=== PATIENT | female | born 1960 | race Caucasian/White ===

== ENCOUNTER 2019-08-30 19:23 | Emergency (ER) | payer OTHER ==
[~2019-08-30] VITALS: Ht 170.2 cm; Wt 79.4 kg
[~2019-08-30 19:23] MED LIST: ACET-8386 PO; CLON1TAB PO; CLON2TAB; CYCL-405 PO; OMEP40EC24 PO; ONDA-24 PO; SUCR1TAB35 PO; TOP25
--- NOTE | 2019-08-30 19:28 | NUR ---
PT PAVEL ON GURNEY TO BED #12
[2019-08-30 19:30] VITALS: BP 123/70
[2019-08-30] MEDS ORDERED: NACL 0.9% 1,000 ML IV ONE ×2 (20:33→23:00)
[2019-08-30] MEDS ORDERED: ONDANSETRON 4 MG/2 ML VIAL IVP ONE (20:35)
--- NOTE | 2019-08-30 20:35 | NUR ---
59 YO FEMALE BIBA FOR C/O N/V X2 DAYS. PT STATES, " I FEEL DEHYDRATED." PT AAOX4, SEIZURE PRECAUTIONS. PT HAS HX OF PARALYSIS TO BUE. PALPABLE PULSES, SR 70S. LUNGS CLEAR EVEN UNLABORED. ABD SOFT NON DISTENDED. ACTIVE BOWEL SOUNDS. GURNEY LOCKED IN LOWEST POSITION. WILL UPDATE ERMD. HX: EPILEPSY, PARALYSIS, GERD, CONSTIPATION AX: SULFA
[2019-08-30 21:20] LABS: BASOPHILS % (AUTO) 0.3 % (0.0-2.0); EOSINOPHILS # (AUTO) 0.1 K/uL (0-0.4); EOSINOPHILS % (AUTO) 1.5 % (0.0-4.0); HEMOGLOBIN 13.7 g/dL (12.0-16.0); LYMPHOCYTES # (AUTO) 1.6 K/uL (2.5-16.5); LYMPHOCYTES % (AUTO) 17.5 % (20.5-51.1); MEAN CORPUSCULAR HEMOGLOBIN 32 pg (27-31); MEAN CORPUSCULAR HGB CONC 33 g/dL (33-37); MEAN CORPUSCULAR VOLUME 96.4 fL (80-94); MONOCYTES # (AUTO) 0.6 K/uL (0.8-1.0); MONOCYTES % (AUTO) 6.2 % (1.7-9.3); NEUTROPHILS # (AUTO) 6.8 K/uL (1.8-7.7); NEUTROPHILS % (AUTO) 74.5 % (42.2-75.2); PLATELET COUNT (AUTO) 258 K/uL (140-450); RED BLOOD CELL COUNT(AUTO) 4.36 MIL/uL (4.20-5.40); RED CELL DISTRIBUTION WIDTH 14.4 % (11.6-13.7); WHITE BLOOD COUNT (AUTO) 9.1 K/uL (4.8-10.8)
[2019-08-30 21:38] LABS: ANION GAP 12.4 (8-16); CARBON DIOXIDE 30.9 mmol/L (21-32); CREATININE 0.7 mg/dL (0.6-1.3); POTASSIUM 3.3 mmol/L (3.5-5.1); TOTAL BILIRUBIN 0.8 mg/dL (0.0-1.0)
--- NOTE | 2019-08-30 22:25 | NUR ---
# 14 FR STRAIGHT catheter utilizing sterile technique unsuccessful.pt refusing bedpan @ this time. urine collection bag in place
[2019-08-30 23:02] LABS: APPEARANCE,URINE SL CLOUDY (CLEAR); BILIRUBIN,URINE 1+ (NEGATIVE); BLOOD, URINE TRACE-I (NEGATIVE); COLOR,URINE YELLOW (YELLOW); LEUKOCYTE ESTERASE ,URINE TRACE (NEGATIVE); NITRITE, URINE NEGATIVE (NEGATIVE); UGLUCOSE NEGATIVE (NEGATIVE)
--- NOTE | 2019-08-30 23:35 | NUR ---
PT TAKEN TO CT
--- NOTE | 2019-08-30 23:54 | NUR ---
PT RETURN FROM CT
[2019-08-31] MEDS ORDERED: POTASSIUM CHLORIDE 10 MEQ TABER PO ONE (01:20)
--- NOTE | 2019-08-31 01:58 | NUR ---
DEMI SOFTBALL WINDER MADE AWARE, PT TO BE TRANSFERRED BACK TO [facility]
[2019-08-31 02:50] VITALS: BP 108/68
--- NOTE | 2019-08-31 02:50 | NUR ---
Patient discharged with v/s stable. Written and verbal after care instructions given and explained. Patient verbalized understanding. Ambulance Transport [facility]. All questions addressed prior to discharge. Advised to follow up with PMD.
== END 2019-08-31 02:50 | disposition home or self-care (01) ==
LOC: MED 19:23
DX: R11.2 Nausea with vomiting, unspecified (principal); E87.6 Hypokalemia; E86.0 Dehydration; Z91.012 Allergy to eggs; Z79.891 Long term (current) use of opiate analgesic; Z79.899 Other long term (current) drug therapy
CPT/HCPCS: 36415; 74176; 80053; 81001; 83605; 83690; 85025; 87040; 87086; 96361; 96374; 99284; J2405; J7030

== ENCOUNTER 2019-10-03 06:50 | Inpatient (IN) | payer OTHER ==
[~2019-10-03] VITALS: Ht 170.2 cm; Wt 94.5 kg
[2019-10-03] VITALS (62 sets, daily range): BP systolic 87–158; BP diastolic 49–89
--- NOTE | 2019-10-03 06:53 | NUR ---
PT PAVEL DESHPANDES. TAKEN TO BED 4
--- NOTE | 2019-10-03 07:02 | NUR ---
Dr. Kellogg examining patient.
--- NOTE | 2019-10-03 07:02 | NUR ---
59 Y/O FEMALE BIBA FROM PSYCHIATRIC FOR POSSIBLE OVERDOSE. PT WAS SEEN AT [facility] LAST NIGHT PER EMS. PSYCHIATRIC STATED TO EMS THAT [facility] OVER MEDICATED PT AND WAS SENT HOME AT 2200. PER EMS PT RECEIVES TEMAZEPAM, MORPHINE, AND PERCOCET. PT HAS NON RESPONSIVE PINPOINT PUPILS. APPEARS WITH [facility] OF 8. PT RESPONSIVE TO PAINFUL STIMULI. PT DOES NOT RESPOND TO NAME. PT APPEARS PALE, AND COOL TO THE TOUCH. RR DEEP AND LABORED, WITH INTERMITTENT SNORING. PT PLACED ON THE MONITOR. PT SITTING UPRIGHT, X2 SIDERAILS, BED LOCKED AND IN LOW POSITION.
--- NOTE | 2019-10-03 07:10 | NUR ---
RECEIVED REPORT FROM ALMITA DAMIAN.
--- NOTE | 2019-10-03 07:28 | NUR ---
PT TAKEN TO CT
--- NOTE | 2019-10-03 07:47 | NUR ---
Patient returned from CT scan. RN re-evaluating patient at bedside.
[2019-10-03 07:52] LABS: HEMATOCRIT 41.4 % (36-48); HEMOGLOBIN 13.3 g/dL (12.0-16.0); MEAN CORPUSCULAR HEMOGLOBIN 31 pg (27-31); MEAN CORPUSCULAR HGB CONC 32 g/dL (33-37); MEAN CORPUSCULAR VOLUME 96.3 fL (80-94); PLATELET COUNT (AUTO) 457 K/uL (140-450); RED CELL DISTRIBUTION WIDTH 15.2 % (11.6-13.7); WHITE BLOOD COUNT (AUTO) 21.9 K/uL (4.8-10.8)
[2019-10-03 08:05] LABS: ALBUMIN 3.4 g/dL (3.4-5.0); ANION GAP 22.7 (8-16); ASPARTATE AMINOTRANSFERASE 44 U/L (15-37); CARBON DIOXIDE 19.1 mmol/L (21-32); CHLORIDE 102 mmol/L (98-107); CREATININE 0.9 mg/dL (0.6-1.3); GFR ARICAN-AMERICAN 82 mL/min (>90); GLUCOSE 374 mg/dL (74-106); POTASSIUM 3.8 mmol/L (3.5-5.1); SALICYLATE 2.9 mg/dL (2.8-20.0); SODIUM SERUM 140 mmol/L (136-145); TOTAL BILIRUBIN 0.9 mg/dL (0.0-1.0); UREA NITROGEN, BLOOD 9 mg/dL (7-18)
[2019-10-03 08:06] LABS: ACETAMINOPHEN < 0.5 ug/ml (10-30)
[2019-10-03] MEDS ORDERED: cefTRIAXone 2,000 MG in DEXTROSE 5% 100 ML IV ONE (08:10)
[2019-10-03] MEDS ORDERED: ACETAMINOPHEN 650 MG SUPP RC ONE (08:10)
[2019-10-03] MEDS ORDERED: VANCOMYCIN 1,000 MG in DEXTROSE 5% 250 ML IV ONE (08:10)
[2019-10-03 08:11] LABS: APPEARANCE,URINE CLOUDY (CLEAR); BILIRUBIN,URINE 2+ (NEGATIVE); BLOOD, URINE 3+ (NEGATIVE); COLOR,URINE YELLOW (YELLOW); LEUKOCYTE ESTERASE ,URINE TRACE (NEGATIVE); NITRITE, URINE NEGATIVE (NEGATIVE); UGLUCOSE 2+ (NEGATIVE)
[2019-10-03 08:12] LABS: LYMPHOCYTES % (MANUAL) 12 % (20-46); MONOCYTES % (MANUAL) 8 % (5-12)
[2019-10-03] MEDS ORDERED: levETIRAcetam 1,000 MG in NACL 0.9% 100 ML IV ONE ×2 (08:15→08:20)
[2019-10-03] MEDS ORDERED: VANCOMYCIN 1,000 MG VIAL ONE (08:15)
[2019-10-03] MEDS ORDERED: cefTRIAXone 2,000 MG VIAL ONE (08:15)
[2019-10-03 08:17] LABS: BARBITURATE, URINE NEG. ng/ml (NEG <=200); BENZODIAZEPINE, URINE POS. ng/mL (NEG <=200); CANNABINOID, URINE NEG. ng/mL (NEG <=50); COCAINE, URINE NEG. ng/mL (NEG <=300); OPIATE, URINE POS. ng/mL (NEG <=2000); PHENCYCLIDINE SCREEN,URINE NEG. ng/mL (NEG <=25)
[2019-10-03] MEDS ORDERED: levETIRAcetam 100 MG/ML VIAL IV ONE (08:17)
--- NOTE | 2019-10-03 08:18 | NUR ---
PATIENT HAS SEIZURE, DR. CRESPO ORDERED KEPRA
--- NOTE | 2019-10-03 08:24 | NUR ---
X RAY AT BEDSIDE.
[2019-10-03 08:30] LABS: WBC,URINE 60-80 /HPF (0-5)
--- NOTE | 2019-10-03 08:31 | NUR ---
Dr. Leslie at bedside following secondary seizure for endotracheal intubation.
[2019-10-03] MEDS ORDERED: fentaNYL 0.05 MG/ML VIAL ONE (08:47)
[2019-10-03] MEDS ORDERED: PROPOFOL 1000 MG/100 ML PREMIX 100 ML IV ONE (08:48)
--- NOTE | 2019-10-03 08:50 | NUR ---
CALLED TO ER FOR PT'S INTUBATION. PT WAS ON NASAL CANNULA SPO2 97-99% BUT AGONAL BREATHING AND UNRESPONSIVE. PT INTUBATED BY ER MD CRESPO WITH 7.5 ETT AT 23 CM AT LIP. TUBE PLACEMENT CONFIRMED BY CO2 COLOR CHANGE, BREATH SOUNDS, AND CXR. VENT SETTINGS CHARTED. MD AGREES WITH SETTINGS. VENT CONNECTED TO RED OUTLET. ALARMS AUDIBLE. AMBU BAG AT BEDSIDE. NO SOB OR DISTRESS NOTED. WILL CONTINUE TO MONITOR.
[2019-10-03 08:54] LABS: PROTHROMBIN TIME 10.7 secs (10.8-13.4)
--- NOTE | 2019-10-03 08:54 | NUR ---
59 Y/0 F INTUBATED AT BEDSIDE BY DR. CRESPO
[2019-10-03] MEDS: PROPOFOL 1000 MG/100 ML PREMIX 100 ML IV ONE ×2 (08:55→09:11)
--- NOTE | 2019-10-03 09:00 | NUR ---
NG TUBE #16 PLACED RIGHT NOSTRIL AT [facility].
[2019-10-03] MEDS ORDERED: NACL 0.9% 1,000 ML IV ONE ×3 (09:15→15:05)
--- NOTE | 2019-10-03 09:25 | NUR ---
RETAINED CATH NO 16, URINE 10 ML.
[2019-10-03] MEDS: fentaNYL 1 MG in NACL 0.9% 80 ML IV PRN ×2 (09:38→21:01)
[2019-10-03] MEDS ORDERED: NACL 0.9% IV ONE (09:40)
[2019-10-03] MEDS ORDERED: ETOMIDATE 20 MG/10 ML VIAL IVP SCH (09:47)
[2019-10-03] MEDS ORDERED: SUCCINYLCHOLINE CHLORIDE 200 MG/10 ML VIAL IVP SCH (09:48)
--- NOTE | 2019-10-03 10:05 | NUR ---
TRANSFERRED TO ICU-8 REMOVED FROM VENTILATOR AND PLACED ON SUPPLEMENTAL OXYGEN VIA E-TANK AT 15 LPM TO INLINE SUCTION CATHETER/TRACHEOSTOMY TUBE BAG DEPRESSED EVERY 6-8 SECONDS TOLERATED TRANSFER WELL WITHOUT INCIDENT SATURATION 98% HR 108
--- NOTE | 2019-10-03 10:15 | NUR ---
PT ARRIVED FROM ER, BEDSIDE REPORT RECEIVED FROM [employer] SAFETY INSPECTOR KAVON, PT INTUBATED ON VENTILATOR, 7.5 ETT 24CM AT LIP, FIO2 30%, RR 16, VT 500, PEEP 5, LUNG SOUNDS EQUAL CLEAR BILAT, PT OPENS EYES TO TOUCH, RASS -4 ON FENTANYL, PUPILS SMALL AND SLUGGISH, PIV X2 18G LAC, 20G RAC, NS BOLUS, FENT DRIP INFUSING WELL, SITE WNL FOR BOTH, NGT TO R NARE, PLACEMENT CONFIRMED WITH AUSC BY 2RN, AB SOFT, NON DISTENDED, DAI IN PLACE, DRAINING TO GRAVITY, SKIN COOL DRY COLOR WNL, COVERED WITH BLANKETS, DERMATITIS NOTED IN BILAT INNER THIGHS, SCABS ON LEFT TOES, PHOTO TAKEN, SEE WOUND DOC, FLACC 0, ALL SAFETY MEASURES IN PLACE, SZ PREC, FALL PREC INITIATED, POC REVIEWED, WILL CONTINUE TO MONTOR.
--- NOTE | 2019-10-03 10:18 | NUR ---
PLACED BACK ON A WeddingfulSCAPE VENTILATOR PLUGGED INT RED OUTLET WITH SAME SETTINGS NOTED AMBU BAG NOTED AT HOB
--- NOTE | 2019-10-03 10:22 | NUR ---
Patient will be admitted to care of DR HAYWOOD. Admited to ICU. Will go to room BED 8. Belongings list completed. Report to NATI HEALY.
--- NOTE | 2019-10-03 10:55 | NUR ---
DR HAYWOOD AT BEDSIDE.
[2019-10-03] MEDS ORDERED: LORazepam 2 MG/ML VIAL IVP PRN (11:00)
[2019-10-03] MEDS ORDERED: ONDANSETRON 4 MG/2 ML VIAL IVP PRN (11:00)
[2019-10-03] MEDS ORDERED: MAGNESIUM OXIDE 400 MG TAB PO PRN (11:00)
[2019-10-03] MEDS ORDERED: ACETAMINOPHEN 325 MG TAB PO PRN (11:00)
[2019-10-03] MEDS ORDERED: POTASSIUM CHLORIDE 10 MEQ TABER PO PRN (11:00)
[2019-10-03] MEDS ORDERED: NACL 0.9% 1,000 ML IV SCH (11:15)
--- NOTE | 2019-10-03 11:24 | NUR ---
ABG DRAWN WITH NO INCIDENT. PAGED MD CHANGE FOR RESULTS AND WAITING FOR CALL BACK.
--- NOTE | 2019-10-03 12:01 | NUR ---
CALLED ANNA FREDERICK ([phone]), SPOKE WITH LUCIA TODD). PER LUCIA, PT WAS ABLE TO MAKE OWN DECISIONS AND REFUSED BOTH FLU AND PNA VACCINES.
--- NOTE | 2019-10-03 12:05 | NUR ---
AXILLARY TEMP 95.6, TEMPORAL 95.8, ROOM TEMP SET AT 68, FAN BLOWING HARD COLD AIR TO PATIENT, PT COVERED WITH MULTIPLE BLANKETS, ROOM TEMP RAISED, FAN TURNED DOWN, WILL RECHECK TEMP.
--- NOTE | 2019-10-03 12:19 | NUR ---
WOUND CARE EVALUATION NOTE: REASON FOR EVALUATION: LOW RYAN SCALE AND PERINEUM WOUND SKIN ASSESSMENT DONE WITH THIS 59 Y/O FEMALE PT ADMITTED FROM [facility] TO [facility] WITH INITIAL DX OF AMS. PT. VISITED [facility] AND DISCHARGED BACK TO FACILITY YESTERDAY WITH AMS. ALL ABOVE INFORMATION OBTAINED FROM ADMISSION H&P. PT IS ASLEEP. NOT RESPONSIVE TO VERBAL AND PHYSICAL STIMULI. SKIN IS WARM AND DRY, NO EDEMA TO BILATERAL LOWER LEGS. PLAN OF CARE DISCUSSED WITH PRIMARY RN INTEGUMENTARY: -INCONTINENT ASSOCIATE DERMATITIS TO PERINEUM EXTENTED TO RIGHT AND LEFT MEDIAL THIGHS WITH MULTIPLE SKIN EROSIONS WOUND BED IS RED AND MOIST, OLI -WOUND SKIN REDNESS -MULTIPLE DRY SCABS TO TOP OF TOES, RIGHT 2ND, 3RD AND 4TH DIGIT, OLI WOUND SKIN INTACT -BILATERAL HEELS BLANCHABLE REDNESS RECOMMENDATIONS: -CLEANSE PERINEUM, RIGHT AND LEFT MEDIAL THIGHS WITH SOAP AND WATER, PAT DRY, APPLY Z GUARD BID AND PRN WITH SOILING. -APPLY OPTIFOAM TO SACRALCOCCYX QD AND PRN SOILING PREVENTION -OFFLOAD BILATERAL HEELS BY PLACING PILLOWS UNDER CALVES UNLESS OTHERWISE CONTRAINDICATED -PRESSURE REDISTRIBUTIONS BY USING PILLOWS FOR POSITIONING -TURN AND REPOSITION Q2H, OFFLOAD SACRALCOCCYX BY TURNING RIGHT AND LEFT -CONTINUE TO FOLLOW RD RECOMMENDATIONS ALL ABOVE RECOMMENDATIONS DISCUSSED WITH PRIMARY RN PLEASE CONTACT WOUND CARE NURSE FOR ANY QUESTION AND CHANGE OF WOUND CONDITION.
--- NOTE | 2019-10-03 12:20 | NUR ---
CALLED DR. ASHLEE COOK'S OFFICE. SPOKE WITH JOY REGARDING NEURO CONSULT WITH DR. FREDERICK. DR. COOK WILL BE COVERING DR. FREDERICK FROM 10/03 TO 10/07. JOY WILL LET DR. COOK KNOW OF THE CONSULTATION. WILL FOLLOW UP.
[2019-10-03] MEDS: LACTULOSE 20 GM/30 ML UDC PO SCH ×2 (12:29→17:22)
--- NOTE | 2019-10-03 12:38 | NUR ---
DR COOK AT BEDSIDE
[2019-10-03] MEDS: Z-GUARD PASTE TP SCH (13:00)
[2019-10-03] MEDS ORDERED: Z-GUARD PASTE TP SCH (13:00)
[2019-10-03] MEDS: GAUZE TP SCH (13:07)
[2019-10-03] MEDS: PIPERACILLIN/TAZOBACTAM 3.375 GM in DEXTROSE 5% 50 ML IV SCH ×2 (13:07→20:50)
--- NOTE | 2019-10-03 13:30 | NUR ---
INSOLE PRESSER AT BEDSIDE.
--- NOTE | 2019-10-03 13:50 | NUR ---
NO PULMONARY DISTRESS NOTED EQUAL CHEST RISE AIRWAY PATENT
--- NOTE | 2019-10-03 14:15 | NUR ---
TEMPORAL 95.0, AXILA 95.5, RECTAL TEMP 94.4, DR CHASTITY MCKEON.
--- NOTE | 2019-10-03 14:50 | NUR ---
NO CALL BACK YET FROM DR. HAYWOOD. PAGED SECOND TIME.
--- NOTE | 2019-10-03 15:00 | NUR ---
DR. HAYWOOD CALLED BACK, MADE AWARE OF PT'S DECREASING TEMP 95.0 VIA TEMPORAL ARTERY SCAN AND DECREASING BLOOD PRESSURE 92/64. ORDERS RECEIVED.
[2019-10-03] MEDS ORDERED: VANCOMYCIN PER PHARMACY MC PRN (15:05)
--- NOTE | 2019-10-03 15:20 | NUR ---
CARA MERINO APPLIED, NS BOLUS STARTED, IV SITES WNL, PT RESTING WITH EYES CLOSED, OPENS EYES TO VOICE, VS STABLE, WILL CONTINUE TOMONITR
--- NOTE | 2019-10-03 15:32 | NUR ---
10/03/19 RD INITIAL ASSESSMENT COMPLETED PLEASE REFER TO NUTRITION ASSESSMENT UNDER CARE ACTIVITY FOR ESTIMATED NUTRITIONAL NEEDS. 1. RECOMMEND VITAL AF 1.2 @ 55 ML/HR X 24 HOURS -THIS WILL PROVIDE 1320 ML OF VOLUME, 1584 KCAL, AND 99 GM OF PROTEIN WHICH MEETS 100% OF ESTIMATED KCAL AND PROTEIN NEEDS. 2. RECOMMEND FREE WATER FLUSH OF [address] TO FOLLOW-UP 2-3 DAYS, HIGH RISK EMERSON PAYAN RD
--- NOTE | 2019-10-03 15:58 | NUR ---
NO EVIDENCE OF RESPIRATORY DISTRESS NOTED GOOD CHEST RISE DEEP TRACHEAL SUCTION FOR MODERATE THIN YELLOW SECRETIONS AIRWAY PATENT
--- NOTE | 2019-10-03 16:15 | NUR ---
BROTHGREG NUNEZ AT BEDSIDE
--- NOTE | 2019-10-03 16:40 | NUR ---
PAGED DR. HAYWOOD FOR ABNORMAL ABG RESULTS. AWAITING CALL BACK.
--- NOTE | 2019-10-03 17:05 | NUR ---
DR. HAYWOOD PAGED SECOND TIME FOR ABG RESULTS.
--- NOTE | 2019-10-03 17:08 | NUR ---
NO SOB NOTED EQUAL CHEST RISE GOOD AERATION THROUGHOUT BILATERAL LUNG GOLDSTEIN AIRWAY PATENT
[2019-10-03] MEDS: VANCOMYCIN 1,000 MG in DEXTROSE 5% 250 ML IV SCH (17:22)
--- NOTE | 2019-10-03 17:40 | NUR ---
DR. HAYWOOD CALLED BACK. REPORTED ABNORMAL ABG RESULTS. ORDERS RECEIVED.
--- NOTE | 2019-10-03 17:50 | NUR ---
LARGE BM, PERICARE DONE, Z GUARD APPLIED TO INNER THIGH AND OLI AREA, POSITION CHANGED, PT SEDATED ON FENTANYL AT 44MCG/HR, RASS -4, OPENS EYES TO VOICE, DOES NOT FOLLOW COMMANDS. GT FEEDING STARTED AT 10ML/HR PER ORDER,
[2019-10-03] MEDS ORDERED: SODIUM BICARBONATE 8.4% PFS 50 MEQ/50 ML SYR IVP SCH (18:00)
[2019-10-03] MEDS: SODIUM BICARBONATE 8.4% 100 MEQ in DEXTROSE 5% 1,000 ML IV SCH (18:41)
--- NOTE | 2019-10-03 19:15 | NUR ---
BEDSIDE REPORT GIVEN TO BRAZER ASSEMBLER NURSE JEFF FLORES IN STABLE CONDITION.
--- NOTE | 2019-10-03 20:00 | NUR ---
RECEIVED REPORT FROM DAY NURSE. PT SEDATED, RASS-4 PT AFEBRILE @ THIS TIME, UNABLE TO FOLLOW COMMANDS. S1 S2, NSR 90S, SBP 90-100S MAP<65. ETT TO VENT @ 30% FIO2 TV 500 PEEP 5 R 16. MINIMAL SECRETIONS VIA INLINE SUCTION; RHONCHI AUSCULTATED THROUHGHOUT ANTERIOR LUNGS. NGT TO R NARES VITAL AF RUNNING NO RESIDUALS NOTED. AUSCULTATED FOR +PLACEMENT. DAI CATH IN PLACE JEWELL WITH SEDIMENTS NOTED. SKIN NON INTACT; INCONTINENT ASSOCIATED DERMATITIS TO OLI AREA. OLD HEALING SCABS TO L TOES NOTED. X2 PERIPHERAL IV WITH FENTANYL DRIP RUNNING ON R AC, BICARB DRIP ON L AC. BED LOCKED IN LOWEST POSITION. HOB>30 DEGREES. SEIZURE PRECAUTIONS IN PLACE.
[2019-10-03] MEDS: levETIRAcetam 500 MG in NACL 0.9% 100 ML IV SCH (20:49)
[2019-10-03] MEDS: PANTOPRAZOLE 40 MG INJ VIAL IVP SCH (20:50)
[2019-10-03] MEDS: TOPIRAMATE 25 MG TAB NG SCH (20:50)
--- NOTE | 2019-10-03 23:33 | NUR ---
RECEIVED INTUBATED PT WITH ETT SIZE 7.5 AT 23 CM @ LIP AND SECURED WITH ANCHOR-FAST. COARSE BREATH SOUNDS; SP02 97%; SUCTIONED MODERATE YELLOW THICK SECRETIONS FROM ETT. NO RESPIRATORY DISTRESS. PT ON VENT SETTINGS ORDERED; VENT PLUGGED IN RED OUTLET; BVM AT BEDSIDE; HOB>30; ALARMS FUNCTIONING AND AUDIBLE. WILL CONTINUE TO MONITOR PT.
[2019-10-04] VITALS (79 sets, daily range): BP systolic 83–140; BP diastolic 48–89
--- NOTE | 2019-10-04 | NUR ---
VAP ORAL CARE DONE. PT TURNED AND REPOSITIONED. FLACC 0. WILL CONTINUE TO OBSERVE
[2019-10-04] MEDS: LACTULOSE 20 GM/30 ML UDC PO SCH ×4 (00:40→18:13)
[2019-10-04] MEDS: GAUZE TP SCH ×2 (01:00→12:55)
[2019-10-04] MEDS: Z-GUARD PASTE TP SCH ×2 (01:00→12:55)
--- NOTE | 2019-10-04 03:20 | NUR ---
PT WARM TO TOUCH; ORAL TEMP CHECKED 100.9. COOLING MEASURES APPLIED. TYLENOL PRN GIVEN. WILL UPDATE MD.
--- NOTE | 2019-10-04 04:00 | NUR ---
TEMP RECHECKED 98.8 TEMPORAL; FLACC 0.
[2019-10-04] MEDS: SODIUM BICARBONATE 8.4% 100 MEQ in DEXTROSE 5% 1,000 ML IV SCH ×2 (04:40→16:40)
[2019-10-04] MEDS: PIPERACILLIN/TAZOBACTAM 3.375 GM in DEXTROSE 5% 50 ML IV SCH ×3 (05:00→21:03)
--- NOTE | 2019-10-04 05:00 | NUR ---
AM CARE PROVIDED, LINEN CHANGED. VAP ORAL CARE DONE. PT TURNED AND REPOSITIONED
--- NOTE | 2019-10-04 05:24 | NUR ---
SUCTIONED SMALL YELLOW THICK SECRETIONS FROM ETT. AIRWAY PATENT. ETT SIZE 7.5 SECURED AT 23 CM @ LIP. NO RESPIRATORY DISTRESS NOTED. WILL CONTINUE TO MONITOR.
[2019-10-04] MEDS: VANCOMYCIN 1,000 MG in DEXTROSE 5% 250 ML IV SCH ×2 (05:30→18:11)
[2019-10-04 06:02] LABS: ANION GAP 21.5 (8-16); CARBON DIOXIDE 19.9 mmol/L (21-32)
[2019-10-04 06:10] LABS: BASOPHILS % (AUTO) 0.3 % (0.0-2.0); EOSINOPHILS # (AUTO) 0.1 K/uL (0-0.4); EOSINOPHILS % (AUTO) 0.5 % (0.0-4.0); HEMATOCRIT 33.3 % (36-48); HEMOGLOBIN 11.2 g/dL (12.0-16.0); LYMPHOCYTES # (AUTO) 0.9 K/uL (2.5-16.5); LYMPHOCYTES % (AUTO) 7.8 % (20.5-51.1); MEAN CORPUSCULAR HEMOGLOBIN 31 pg (27-31); MEAN CORPUSCULAR HGB CONC 34 g/dL (33-37); MEAN CORPUSCULAR VOLUME 93.5 fL (80-94); MONOCYTES # (AUTO) 0.7 K/uL (0.8-1.0); MONOCYTES % (AUTO) 6.3 % (1.7-9.3); NEUTROPHILS # (AUTO) 9.3 K/uL (1.8-7.7); NEUTROPHILS % (AUTO) 85.1 % (42.2-75.2); PLATELET COUNT (AUTO) 179 K/uL (140-450); RED BLOOD CELL COUNT(AUTO) 3.56 MIL/uL (4.20-5.40); RED CELL DISTRIBUTION WIDTH 14.5 % (11.6-13.7)
[2019-10-04 06:25] LABS: POTASSIUM 2.4 mmol/L (3.5-5.1)
--- NOTE | 2019-10-04 07:30 | NUR ---
RECEIVED PATIENT ON BED.RASS-4 WITH FENTANYL DRIP.DAI TO GRAVITY.NGT WITH VITAL AT 40 ML/H .ETT TO VENT SIZE 7.5 WITH VENT SETTING FOLLOWS fIO2=30 PERCENT,XD=256,ac=16,peep=5 .NSR on the monitor.Seizure precaution maintained. Addendum: 10/04/19 at 1151 by Melva Singer RN RN ett level 23 cm at lip
--- NOTE | 2019-10-04 07:30 | NUR ---
REPORT GIVEN TO DAY SHIFT FOR CONTINUITY OF CARE
--- NOTE | 2019-10-04 08:00 | NUR ---
RECEIVED PT FROM [facility] ON 500,16,+5,30%. VENT PLUGGED INTO RED OUTLET. BMV AT BEDSIDE. PT SOUNDED CLEAR. SAT 96-97%. ATTEMPTED ABG TWICE BUT WAS UNSUCCESSFUL. WILL TRY AGAIN IN ABOUT AN HOUR. RN GORDO NOTIFIED.
[2019-10-04] MEDS: ENOXAPARIN 40 MG/0.4 ML SYR SUBQ SCH (08:26)
[2019-10-04] MEDS ORDERED: MAG SULF 2000 MG/WATER PREMIX 50 ML IV SCH (08:30)
[2019-10-04] MEDS: levETIRAcetam 500 MG in NACL 0.9% 100 ML IV SCH ×2 (08:32→21:03)
[2019-10-04] MEDS: TOPIRAMATE 25 MG TAB NG SCH ×2 (08:32→21:04)
[2019-10-04] MEDS: PANTOPRAZOLE 40 MG INJ VIAL IVP SCH ×2 (08:32→21:04)
[2019-10-04] MEDS: POTASSIUM CHLORIDE 10 MEQ TABER PO SCH ×2 (08:33→12:54)
--- NOTE | 2019-10-04 09:35 | NUR ---
ASKED ELVIS NELSON TO HELP WITH ABG DUE TO TWO UNSUCESSFUL ATTEMPTS. ELVIS WAS UNABLE TO GET IT. PATIENT BP IS LOW. AND PT HAS A FAINT PULSE.
[2019-10-04] MEDS ORDERED: POTASSIUM CHLORIDE 20% 40 MEQ/15 ML UDC PO PRN (13:03)
[2019-10-04] MEDS ORDERED: NOREPINEPHRINE 4 MG in DEXTROSE 5% 250 ML IV PRN (15:00)
--- NOTE | 2019-10-04 15:38 | NUR ---
SX SMALL AMOUNT OF THICK YELLOW SECRETION
--- NOTE | 2019-10-04 17:30 | NUR ---
PT NOTED WITH PVCS ON MONITOR. PAGED DR. HAYWOOD X2. WAITING FOR CALL BACK. NO DISTRESS NOTED ON PT AT THIS TIME.
[2019-10-04] MEDS: BLOOD GLUCOSE MONITORING 1 DEV DEV FS SCH (18:16)
[2019-10-04] MEDS: INSULIN LISPRO SLIDING SCALE 100 UNITS/ML VIAL SUBQ PRN (18:17)
[2019-10-04] MEDS ORDERED: MAG SULF 2000 MG/WATER PREMIX 100 ML IV ONE (18:45)
[2019-10-04] MEDS ORDERED: KCL 20 MEQ/WATER INJ PREMIX 200 ML IV ONE (18:45)
--- NOTE | 2019-10-04 19:30 | NUR ---
RECEIVED REPORT FROM MORNING RNARMANDO, FOR CONTINUITY OF CARE. VS STABLE AT THIS TIME. AFEBRILE. PERRL. FLACC 0. PT OPENS EYES TO PAIN. SEIZURE PRECAUTIONS IN PLACE. NO SEIZURE ACTIVITY PER REPORT. LUNG SOUNDS CLEAR. ETT TO VENT WITH SETTINGS: FIO2 30%, TV 500, R16, PEEP 5. RESPIRATIONS EVEN AND UNLABORED. CHEST RISE SYMMETRIC. ORAL CARE PROVIDED TO PT. S1+S2 HEARD. SR ON MONITOR. PULSES PALPABLE IN ALL EXTREMITIES. NGT THROUGH RIGHT NARES. AUSCULTATED AND FLUSHED. NO RESIDUAL NOTED. VITAL AF RUNNING AT 55ML/HR. DAI CATHETER IN PLACE. DRAINING CLEAR AND YELLOW URINE. DAI CATHETER SECURED IN PLACE. NO BM NOTED. PT HAS PERIPHERAL IV ON RIGHT AC 20G AND LEFT AC 18G. IV LINES ARE PATENT, INTACT AND ASYMPTOMATIC. SODIUM BICARBONATE RUNNING AT 100ML/HR. HOB AT 30 DEGREES. ALL SAFETY PRECAUTIONS ARE IN PLACE. WILL CONTINUE TO MONITOR PT.
--- NOTE | 2019-10-04 21:29 | NUR ---
RECEIVED INTUBATED PT WITH ETT SIZE 7.5 AT 23 CM @ LIP AND SECURED WITH ANCHOR-FAST. CLEAR BREATH SOUNDS; SP02 97%; SUCTIONED MODERATE YELLOW THICK SECRETIONS FROM ETT. NO RESPIRATORY DISTRESS. PT ON VENT SETTINGS ORDERED; VENT PLUGGED IN RED OUTLET; BVM AT BEDSIDE; HOB>30; ALARMS FUNCTIONING AND AUDIBLE. WILL CONTINUE TO MONITOR PT
--- NOTE | 2019-10-04 22:36 | NUR ---
NO CHANGE IN PT'S CONDITION. PT TURNED AND REPOSITIONED. TOLERATED FAIRLY. VS REMAINS STABLE. NO SOB NOTED.NO S/S RESPIRATORY DISTRESS. NO SEIZURE NOTED. WILL CONTINUE TO MONITOR PT.
[2019-10-05] VITALS (22 sets, daily range): BP systolic 88–154; BP diastolic 43–95
[2019-10-05] MEDS: LACTULOSE 20 GM/30 ML UDC PO SCH ×4 (00:15→18:04)
[2019-10-05] MEDS: BLOOD GLUCOSE MONITORING 1 DEV DEV FS SCH ×4 (00:16→18:04)
[2019-10-05] MEDS: INSULIN LISPRO SLIDING SCALE 100 UNITS/ML VIAL SUBQ PRN ×2 (00:17→06:26)
[2019-10-05] MEDS: GAUZE TP SCH ×2 (00:18→13:08)
[2019-10-05] MEDS: Z-GUARD PASTE TP SCH ×2 (00:18→13:08)
--- NOTE | 2019-10-05 00:20 | NUR ---
SR ON MONITOR. PT EYES ARE CLOSED. FLACC 0. NO SEIZURE ACTIVITY NOTED. VS STABLE. BP WNL. OXYGEN SATURATION WNL. RESPIRATIONS ARE EVEN AND UNLABORED. NO SIGNS OF RESPIRATORY DISTRESS OBSERVED.
--- NOTE | 2019-10-05 02:13 | NUR ---
PT TURNED AND REPOSITIONED. NO BM NOTED AT THIS TIME. VS STABLE. RESPIRATIONS EVEN AND UNLABORED. CHEST RISE SYMMETRIC. OXYGEN SATURATION WNL. WILL CONTINUE TO MONITOR PT.
[2019-10-05] MEDS: SODIUM BICARBONATE 8.4% 100 MEQ in DEXTROSE 5% 1,000 ML IV SCH ×2 (02:40→06:33)
--- NOTE | 2019-10-05 04:32 | NUR ---
AFEBRILE. SEIZURE PRECAUTIONS IN PLACE WITH NO SEIZURE ACTIVITY NOTED. VS REMAINS STABLE SR TO ST ON MONITOR. DAI CATHETER STILL IN PLACE WITH GOOD URINE OUTPUT. ALL SAFETY PRECAUTIONS REMAINS IN PLACE.
--- NOTE | 2019-10-05 05:20 | NUR ---
MORNING CARE PROVIDED TO PT. TOLERATED BEING TURNED FAIRLY. PT AWAKE AT THIS TIME. UNABLE TO ASSIST IN TURNING AND REPOSITIONING. PT HAD ONE BM THAT IS MEDIUM, AND BROWN IN COLOR. CONSISTENCY IS PASTE-LIKE. NO FOUL ODOR NOTED. ORAL CARE PROVIDED ALONG WITH DAI CATHETER CARE. ALL IV LINES ARE PATENT, INTACT AND ASYMPTOMATIC. VS REMAINS STABLE. SR TO ST ON MONITOR AFEBRILE. ALL SAFETY PRECAUTIONS ARE KEPT IN PLACE.
[2019-10-05] MEDS: PIPERACILLIN/TAZOBACTAM 3.375 GM in DEXTROSE 5% 50 ML IV SCH ×3 (05:36→20:25)
[2019-10-05] MEDS: VANCOMYCIN 1,000 MG in DEXTROSE 5% 250 ML IV SCH (06:00)
[2019-10-05 06:25] LABS: ALBUMIN 2.1 g/dL (3.4-5.0); ANION GAP 16.5 (8-16); CARBON DIOXIDE 24.5 mmol/L (21-32); CREATININE 0.7 mg/dL (0.6-1.3); TOTAL BILIRUBIN 1.1 mg/dL (0.0-1.0)
[2019-10-05 06:34] LABS: MEAN CORPUSCULAR HGB CONC 35 g/dL (33-37); RED CELL DISTRIBUTION WIDTH 14.9 % (11.6-13.7)
[2019-10-05 06:37] LABS: HEMATOCRIT 29.3 % (36-48); HEMOGLOBIN 10.2 g/dL (12.0-16.0); MEAN CORPUSCULAR HEMOGLOBIN 32 pg (27-31); MEAN CORPUSCULAR VOLUME 92.7 fL (80-94); PLATELET COUNT (AUTO) 237 K/uL (140-450); RED BLOOD CELL COUNT(AUTO) 3.17 MIL/uL (4.20-5.40); WHITE BLOOD COUNT (AUTO) 9.6 K/uL (4.8-10.8)
[2019-10-05 07:12] LABS: EOSINOPHILS % (MANUAL) 1 % (0-4); LYMPHOCYTES % (MANUAL) 10 % (20-46); MONOCYTES % (MANUAL) 3 % (5-12)
--- NOTE | 2019-10-05 07:12 | NUR ---
RECEIVED BEDSIDE REPORT FROM DEX OPERATIONS CHIEF RN, FOR CONTINUITY OF CARE. PATIENT IS LETHARGIC, OPENS EYES SPONTANEOUSLY, ABLE TO MAKE SOME NEEDS KNOWN. SHE IS AFEBRILE, WARM, DRY, INCONTINENT DERMATITIS TO PERINEAL AREA AND SCABS TO LEFT TOES. PATIENT HAS ETT TO VENT, BREATHING EVEN AND UNLABORED. ST ON MONITOR, FLACC 0. PATIENT HAS NGT IN PLACE TO R. NARES TO TUBE FEEDING. SHE HAS DAI CATHETER IN PLACE. HOB 30 DEGREES, SIDE RAILS UP 3X, SEIZURE PRECAUTIONS IN PLACE. NO SIGNS OF DISTRESS NOTED. WILL CONTINUE TO MONITOR
--- NOTE | 2019-10-05 07:30 | NUR ---
PT RECEIVED FROM [facility] ON AC 16,500,+5,30%. VENT PLUGGED INTO RED OUTLET. BMV AT BEDSIDE. PT IS IN NO DISTRESS
[2019-10-05] MEDS: PANTOPRAZOLE 40 MG INJ VIAL IVP SCH ×2 (08:33→20:25)
[2019-10-05] MEDS: levETIRAcetam 500 MG in NACL 0.9% 100 ML IV SCH ×2 (08:33→21:38)
[2019-10-05] MEDS: TOPIRAMATE 25 MG TAB NG SCH ×2 (08:33→20:25)
[2019-10-05] MEDS: ENOXAPARIN 40 MG/0.4 ML SYR SUBQ SCH (08:37)
--- NOTE | 2019-10-05 09:14 | NUR ---
CALLED DR. HAYWOOD, AWARE OF PATIENT'S POTASSIUM IS 3.0, RECEIVED ORDER FOR KCL IV 40MEQ AND KCL GT 40 MEQ, DR. HAYWOOD ALSO ORDERED FOR PICC LINE.
[2019-10-05] MEDS ORDERED: POTASSIUM CHLORIDE 20% 40 MEQ/15 ML UDC GT SCH (09:30)
[2019-10-05] MEDS ORDERED: KCL 20 MEQ/WATER INJ PREMIX 200 ML IV SCH (09:30)
--- NOTE | 2019-10-05 10:42 | NUR ---
DR. HAYWOOD IS HERE TO SEE AND EXAMINE PATIENT, AND SPEAK WITH PATIENT'S BROTHER.
--- NOTE | 2019-10-05 10:45 | NUR ---
DR. HAYWOOD ORDERED FOR PICC LINE, SPOKE WITH PATIENT'S FAMILY, RECEIVED CONSENT FOR PICC LINE FROM PATIENT'S SON.
[2019-10-05] MEDS ORDERED: NACL 0.9% 500 ML IV SCH (11:20)
--- NOTE | 2019-10-05 12:55 | NUR ---
PT HAS NO SPONTANEOUS EFFORT. PT IS CURRENTLY RIDING THE VENT.
[2019-10-05] MEDS: CHLORHEXADINE GLUC 2% CLOTH TP SCH (15:37)
--- NOTE | 2019-10-05 15:37 | NUR ---
CALLED REGARDING PATIENT'S INCONTINENT DERMATITIS AND FREQUENT LIQUID STOOLS, RECEIVED ORDER FOR RECTAL TUBE.
[2019-10-05] MEDS: MUPIROCIN CA NASAL 2% 1GM TUBE NS SCH (15:41)
[2019-10-05] MEDS: VANCOMYCIN 750 MG in DEXTROSE 5% 250 ML IV SCH (17:07)
--- NOTE | 2019-10-05 17:42 | NUR ---
CALLED DR. FIGUEROA, REGARDING PATIENT BEING MORE AWAKE AND RESTLESS ON THE VENT. RECEIVED ORDER FOR VERSED DRIP AND PRN FENTANYL IVP
[2019-10-05] MEDS ORDERED: fentaNYL 0.05 MG/ML VIAL IVP PRN (17:45)
[2019-10-05] MEDS ORDERED: MIDAZOLAM MDV 50 MG in NACL 0.9% 40 ML IV PRN (17:45)
--- NOTE | 2019-10-05 19:18 | NUR ---
ENDORSED CONTINUITY OF CARE TO DEX DIESEL MECHANIC FARM RN. NO SIGNS OF DISTRESS AT THIS TIME
--- NOTE | 2019-10-05 19:25 | NUR ---
RECEIVED REPORT FROM MORNING RN, LUDIVINA, FOR CONTINUITY OF CARE. VS STABLE AT THIS TIME. AFEBRILE. PERRL. FLACC 0. PT OPENS EYES TO PAIN. SEIZURE PRECAUTIONS IN PLACE. NO SEIZURE ACTIVITY PER REPORT. LUNG SOUNDS RHONCHI. ETT TO VENT WITH SETTINGS: FIO2 30%, TV 500, R16, PEEP 5. RESPIRATIONS EVEN AND UNLABORED. CHEST RISE SYMMETRIC. RESPIRATIONS EVEN AND UNLABORED. ORAL CARE PROVIDED. PULSES PALPABLE IN ALL EXTREMITIES. S1+S2 HEARD[address] ON MONITOR. NGT THROUGH RIGHT NARES. BS ACTIVE IN ALL QUADRANTS. AUSCULTATED AND FLUSHED. NO RESIDUAL NOTED. VITAL AF RUNNING AT 55ML/HR. RECTAL TUBE IN PLACE. NO LEAKAGE NOTED AT THIS TIME. DAI CATHETER IN PLACE. DRAINING SLIGHTLY CLOUDY AND YELLOW URINE. DAI CATHETER SECURED IN PLACE. PT HAS PERIPHERAL IV ON RIGHT AC 20G. IV LINE IS PATENT, INTACT AND ASYMPTOMATIC. NS RUNNING AT 85ML/HR. HOB AT 30 DEGREES. ALL SAFETY PRECAUTIONS ARE IN PLACE. WILL CONTINUE TO MONITOR PT.
--- NOTE | 2019-10-05 22:22 | NUR ---
NO CHANGE IN PT'S CONDITION AT THIS TIME. VS REMAINS STABLE. ST ON MONITOR. FLACC 0. PT DOES NOT APPEAR TO BE EXPERIENCING ANY DISCOMFORT AT THIS TIME. RESPIRATIONS EVEN AND UNLABORED. CHEST RISE SYMMETRIC. OXYGEN SATURATION WNL.
--- NOTE | 2019-10-05 23:08 | NUR ---
TIME OUT DONE AT BEDSIDE FOR PICC LINE INSERTION.
--- NOTE | 2019-10-05 23:35 | NUR ---
PICC LINE SUCCESSFULLY INSERTED BY PICC LINE RN, HUONG REILLY. CXR TAKEN AT BEDSIDE. PER PICC LINE RN, LINE IS OKAY TO USE.
[2019-10-05] MEDS ORDERED: ALBUTEROL SULFATE/IPRATROPIU 3 ML SOL IH PRN (23:45)
[2019-10-06] VITALS (23 sets, daily range): BP systolic 92–136; BP diastolic 43–76
[2019-10-06] MEDS: LACTULOSE 20 GM/30 ML UDC PO SCH ×4 (00:29→18:27)
[2019-10-06] MEDS: BLOOD GLUCOSE MONITORING 1 DEV DEV FS SCH ×4 (00:29→18:36)
[2019-10-06] MEDS: INSULIN LISPRO SLIDING SCALE 100 UNITS/ML VIAL SUBQ PRN ×3 (00:30→18:28)
--- NOTE | 2019-10-06 00:49 | NUR ---
PT TURNED AND REPOSITIONED. VS REMAINS STABLE. SLIGHT LEAKAGE NOTED ON RECTAL TUBE. REINFORCED. AFEBRILE. UNABLE TO FOLLOW COMMANDS. PICC LINE DRESSING CLEAN, DRY AND INTACT. HOB [address]ES. NGT STILL IN PLACE AND NO RESIDUAL NOTED. ALL SAFETY PRECAUTIONS REMAINS IN PLACE.
[2019-10-06] MEDS: Z-GUARD PASTE TP SCH ×2 (01:00→13:20)
[2019-10-06] MEDS: GAUZE TP SCH ×2 (01:00→13:20)
--- NOTE | 2019-10-06 02:15 | NUR ---
VS STABLE. NO CHANGE IN PT'S CONDITION. VS REMAINS STABLE. RESPIRATIONS EVEN AND UNLABORED. OXYGEN SATURATION WNL. CHEST RISE SYMMETRIC. FIO2 STILL AT 30%. NO LEAK NOTED ON RECTAL TUBE AT THIS TIME. ALL SAFETY PRECAUTIONS REMAINS IN PLACE. WILL CONTINUE TO MONITOR PT.
[2019-10-06] MEDS: PIPERACILLIN/TAZOBACTAM 3.375 GM in DEXTROSE 5% 50 ML IV SCH ×3 (04:26→20:35)
--- NOTE | 2019-10-06 05:20 | NUR ---
MORNING CARE PROVIDED TO PT. ALL LINENS ARE CHANGED. TOLERATED BEING TURNED AND REPOSITIONED FAIRLY. RESPIRATIONS EVEN AND UNLABORED. DAI CATHETER AND ORAL CARE PROVIDED. ALL SAFETY PRECAUTIONS ARE IN PLACE. WILL CONTINUE TO MONITOR PT.
[2019-10-06] MEDS: VANCOMYCIN 750 MG in DEXTROSE 5% 250 ML IV SCH (05:24)
[2019-10-06] MEDS: NACL 0.9% 1,000 ML IV SCH ×2 (05:30→23:06)
[2019-10-06 06:59] LABS: BASOPHILS % (AUTO) 0.3 % (0.0-2.0); EOSINOPHILS # (AUTO) 0.2 K/uL (0-0.4); EOSINOPHILS % (AUTO) 4.2 % (0.0-4.0); HEMATOCRIT 26.3 % (36-48); HEMOGLOBIN 8.9 g/dL (12.0-16.0); LYMPHOCYTES # (AUTO) 1.1 K/uL (2.5-16.5); LYMPHOCYTES % (AUTO) 21.3 % (20.5-51.1); MEAN CORPUSCULAR HEMOGLOBIN 32 pg (27-31); MEAN CORPUSCULAR HGB CONC 34 g/dL (33-37); MEAN CORPUSCULAR VOLUME 93.2 fL (80-94); MONOCYTES # (AUTO) 0.3 K/uL (0.8-1.0); MONOCYTES % (AUTO) 5.8 % (1.7-9.3); NEUTROPHILS # (AUTO) 3.5 K/uL (1.8-7.7); NEUTROPHILS % (AUTO) 68.4 % (42.2-75.2); PLATELET COUNT (AUTO) 149 K/uL (140-450); RED BLOOD CELL COUNT(AUTO) 2.82 MIL/uL (4.20-5.40); RED CELL DISTRIBUTION WIDTH 15.1 % (11.6-13.7); WHITE BLOOD COUNT (AUTO) 5.1 K/uL (4.8-10.8)
--- NOTE | 2019-10-06 07:30 | NUR ---
PT ON CONTACT ISOLATION, RESTING WITH EYES CLOSED, FLACC 0, AROUSES TO PAINFUL STIMULI, NO SEDATION MEDICATIONS AT THIS TIME, RESP EVEN UNLABORED, ETT TO VENT, 30% FIO2, RR 16, TV 500, PEEP 5, BS CLEAR, DIMINISHED AT BASES, VS STABLE ON MONTOR, HR 88, RR 16, SAT 100, BP 117/74, NGT TO CONT FEED WITH VITAL AF, AT 55ML/HR, ABD SOFT NON TENDER, +BS IN ALL 4Q, RECTAL TUBE IN PLACE, LOOSE BROWN STOOL DRAINING TO GRAVITY, DAI IN PLACE, DRAINING CLEAR YELLOW URINE TO GRAVITY, SKIN WARM DRY COLOR WNL, 2+ PITTING EDEMA TO BILAT LEs, POC REVIEWED, ALL SAFETY MEASURES IN PLACE, WILL CONTINUE TO MONITOR.
[2019-10-06 07:31] LABS: ALBUMIN 1.9 g/dL (3.4-5.0); ANION GAP 14.2 (8-16); CREATININE 0.7 mg/dL (0.6-1.3); POTASSIUM 3.2 mmol/L (3.5-5.1); TOTAL BILIRUBIN 0.7 mg/dL (0.0-1.0)
[2019-10-06] MEDS: ENOXAPARIN 40 MG/0.4 ML SYR SUBQ SCH (09:00)
--- NOTE | 2019-10-06 09:12 | NUR ---
FIO2 TITRATED TO 28%. WILL CONTINUE TO MONITOR.
[2019-10-06] MEDS: PANTOPRAZOLE 40 MG INJ VIAL IVP SCH ×2 (09:40→20:35)
[2019-10-06] MEDS: levETIRAcetam 500 MG in NACL 0.9% 100 ML IV SCH ×2 (09:41→21:26)
[2019-10-06] MEDS: TOPIRAMATE 25 MG TAB NG SCH ×2 (09:41→20:35)
--- NOTE | 2019-10-06 09:45 | NUR ---
AM MEDS GIVEN, PERICARE DONE, POSITION CHANGED, DAI CARE DONE.
--- NOTE | 2019-10-06 11:41 | NUR ---
(10/06/19) RD FOLLOW UP COMPLETED PLEASE REFER TO NUTRITION PROGRESS NOTE UNDER CARE ACTIVITY FOR ESTIMATED NUTRITION NEEDS. RD RECOMMENDATIONS: 1. CONTINUE VITAL AF 1.2 @ 55 ML/HR X 24 HOURS. -THIS WILL PROVIDE 1320 ML OF VOLUME, 1584 KCAL, AND 99 GM OF PROTEIN WHICH MEETS 100% OF ESTIMATED KCAL AND PROTEIN NEEDS. 2. CONTINUE FREE WATER FLUSH OF [address] TO FOLLOW-UP 2-3 DAYS, HIGH RISK. ONI WOODSON MS, RDN
--- NOTE | 2019-10-06 13:43 | NUR ---
PT RESTING WITH EYES CLOSED, OPENS EYES TO VOICE, DOES NOT FOLLOW COMMANDS, POSITION CHANGED, ORAL CARE DONE, RECTAL TUBE IN PLACE, DRAINING LIQ STOOL, PERICARE DONE, DAI CARE DONE, WILL CONTINUE TO JENNI
--- NOTE | 2019-10-06 15:00 | NUR ---
DR AUSTIN AT BEDSIDE.
--- NOTE | 2019-10-06 15:16 | NUR ---
PT SUCTIONED OBTAINED SMALL AMOUNT OF THICK PALE YELLOW SECRETIONS, AIRWAY IS PATENT AND ETT IS SECURE. PT NOT IN ANY DISTRESS BUT IS UNABLE TO FOLLOW COMMANDS. WILL CONTINUE TO MONITOR.
--- NOTE | 2019-10-06 15:30 | NUR ---
Derrick Boat Operator Note: SW attempted to contact Blayne Paz 3x but line was unavailable. SW attempted to contact patient's brother, Shane Jordan, but mailbox was full. FELA was unable to leave a voicemail. FELA will follow up.
[2019-10-06] MEDS: CHLORHEXADINE GLUC 2% CLOTH TP SCH (16:52)
[2019-10-06] MEDS: MUPIROCIN CA NASAL 2% 1GM TUBE NS SCH (16:52)
[2019-10-06] MEDS: VANCOMYCIN 1,000 MG in DEXTROSE 5% 250 ML IV SCH (17:00)
[2019-10-06] MEDS: POTASSIUM CHLORIDE 20% 40 MEQ/15 ML UDC GT PRN (17:16)
--- NOTE | 2019-10-06 17:34 | NUR ---
PT NOT IN ANY DISTRESS AT THIS TIME. ETT REMAINS SECURE WITH A PATENT AIRWAY. VENT ALARMS REMAIN ON AND FUNCTIONING.
--- NOTE | 2019-10-06 19:25 | NUR ---
BEDSIDE REPORT GIVEN TO BIKE ASSEMBLER NURSE, PT IN STABLE CONDITION, VSS.
--- NOTE | 2019-10-06 19:30 | NUR ---
RECEIVED REPORT FROM MORNING RN, NIRAJ, FOR CONTINUITY OF CARE. VS STABLE AT THIS TIME. AFEBRILE. PERRL. FLACC 0. PT OPENS EYES TO PAIN. SEIZURE PRECAUTIONS IN PLACE. NO SEIZURE ACTIVITY PER REPORT. LUNG SOUNDS CLEAR. ETT TO VENT WITH SETTINGS: FIO2 28%, TV 500, R16, PEEP 5. RESPIRATIONS EVEN AND UNLABORED. CHEST RISE SYMMETRIC. RESPIRATIONS EVEN AND UNLABORED. ORAL CARE PROVIDED. PULSES PALPABLE IN ALL EXTREMITIES. S1+S2 HEARD. SR ON MONITOR. NGT THROUGH RIGHT NARES. BS ACTIVE IN ALL QUADRANTS. AUSCULTATED AND FLUSHED. NO RESIDUAL NOTED. VITAL AF RUNNING AT 55ML/HR. RECTAL TUBE IN PLACE. NO LEAKAGE NOTED AT THIS TIME. DAI CATHETER IN PLACE. DRAINING CLEAR AND LIGHT JEWELL URINE. DAI CATHETER SECURED IN PLACE. PT HAS PERIPHERAL IV ON RIGHT AC 20G. KRISHNA PICC LINE. IV LINES ARE PATENT, INTACT AND ASYMPTOMATIC. NS RUNNING AT 85ML/HR. HOB AT 30 DEGREES. ALL SAFETY PRECAUTIONS ARE IN PLACE. WILL CONTINUE TO MONITOR PT.
--- NOTE | 2019-10-06 19:40 | NUR ---
RECEIVED INTUBATED PT WITH ETT SIZE 7.5 AT 23 CM @ LIP AND SECURED WITH ANCHOR-FAST. CLEAR BREATH SOUNDS; SP02 100%; SUCTIONED SMALL YELLOW THICK SECRETIONS FROM ETT. PT MOVED TO ICU3 SUCCESSFULLY; NO RESPIRATORY DISTRESS. PT ON VENT SETTINGS ORDERED; VENT PLUGGED IN RED OUTLET; BVM AT BEDSIDE; HOB>30; ALARMS FUNCTIONING AND AUDIBLE. WILL CONTINUE TO MONITOR PT
--- NOTE | 2019-10-06 22:05 | NUR ---
VS REMAINS STABLE. NO CHANGE IN PT'S CONDITION. RESPIRATIONS EVEN AND UNLABORED. NO SOB OR RESPIRATORY DISTRESS NOTED. FLACC 0. PT STILL LETHARGIC. NO SEIZURE NOTED. ALL SAFETY PRECAUTIONS ARE IN PLACE. WILL CONTINUE TO MONITOR PT.
[2019-10-07] VITALS (21 sets, daily range): BP systolic 91–127; BP diastolic 63–86
--- NOTE | 2019-10-07 00:15 | NUR ---
RECTAL TUBE COLLECTION BAG CHANGED. 300ML OUTPUT NOTED. NO LEAKAGE NOTED AT THIS TIME. VS STABLE. PT TURNED AND REPOSITIONED. ALL SAFETY PRECAUTIONS IN PLACE. AFEBRILE. WILL CONTINUE TO MONITOR PT.
[2019-10-07] MEDS: BLOOD GLUCOSE MONITORING 1 DEV DEV FS SCH ×4 (00:34→18:40)
[2019-10-07] MEDS: GAUZE TP SCH ×2 (00:34→13:01)
[2019-10-07] MEDS: LACTULOSE 20 GM/30 ML UDC PO SCH ×4 (00:34→18:39)
[2019-10-07] MEDS: Z-GUARD PASTE TP SCH ×2 (00:35→13:02)
[2019-10-07] MEDS: INSULIN LISPRO SLIDING SCALE 100 UNITS/ML VIAL SUBQ PRN (00:35)
[2019-10-07] MEDS: NACL 0.9% 1,000 ML IV SCH ×2 (01:09→22:38)
--- NOTE | 2019-10-07 02:08 | NUR ---
NO CHANGE IN PT'S CONDITION AT THIS TIME. VS REMAINS STABLE. SR ON MONITOR. NO SEIZURE ACTIVITY NOTED. ALL SAFETY PRECAUTIONS REMAINS IN PLACE. WILL CONTINUE TO MONITOR PT.
--- NOTE | 2019-10-07 03:32 | NUR ---
MORNING CARE PROVIDED TO PT. TOLERATED BEING TURNED AND REPOSITIONED FAIRLY. PT ABLE TO OPEN EYES. NO LEAKAGE NOTED FROM THE RECTAL TUBE. DAI CATHETER STILL DRAINING CLEAR AND LIGHT JEWELL URINE. ALL IV SITES ARE PATENT, INTACT AND ASYMPTOMATIC. ALL SAFETY PRECAUTIONS REMAINS IN PLACE. WILL CONTINUE TO MONITOR PT.
--- NOTE | 2019-10-07 04:20 | NUR ---
VS STABLE AT THIS TIME. PT LETHARGIC. AFEBRILE. FLACC 0. ALL SAFETY PRECAUTIONS ARE IN PLACE. VAP ORAL CARE PROVIDED. WILL CONTINUE TO MONITOR PT.
[2019-10-07] MEDS: PIPERACILLIN/TAZOBACTAM 3.375 GM in DEXTROSE 5% 50 ML IV SCH ×4 (05:25→20:57)
[2019-10-07] MEDS: VANCOMYCIN 1,000 MG in DEXTROSE 5% 250 ML IV SCH ×2 (05:45→17:00)
[2019-10-07 05:56] LABS: BASOPHILS % (AUTO) 0.4 % (0.0-2.0); EOSINOPHILS # (AUTO) 0.4 K/uL (0-0.4); EOSINOPHILS % (AUTO) 6.2 % (0.0-4.0); HEMATOCRIT 26.8 % (36-48); HEMOGLOBIN 8.9 g/dL (12.0-16.0); MEAN CORPUSCULAR HEMOGLOBIN 31 pg (27-31); MEAN CORPUSCULAR HGB CONC 33 g/dL (33-37); MEAN CORPUSCULAR VOLUME 94.1 fL (80-94); MONOCYTES # (AUTO) 0.4 K/uL (0.8-1.0); MONOCYTES % (AUTO) 6.4 % (1.7-9.3); NEUTROPHILS # (AUTO) 4.2 K/uL (1.8-7.7); PLATELET COUNT (AUTO) 168 K/uL (140-450); RED BLOOD CELL COUNT(AUTO) 2.84 MIL/uL (4.20-5.40)
--- NOTE | 2019-10-07 06:15 | NUR ---
FLACC 0. PT TURNED AND REPOSITIONED. HOB KEPT AT 30 DEGREES. VS STABLE. SR ON MONITOR. ALL IV ACCESS ARE PATENT, INTACT, AND ASYMPTOMATIC. ALL SAFETY PRECAUTIONS IN PLACE.
[2019-10-07 06:38] LABS: ANION GAP 17.3 (8-16); CREATININE 0.5 mg/dL (0.6-1.3); POTASSIUM 3.3 mmol/L (3.5-5.1)
[2019-10-07 06:51] LABS: ALBUMIN 1.9 g/dL (3.4-5.0); ANION GAP 15.4 (8-16); CARBON DIOXIDE 19.8 mmol/L (21-32); CREATININE 0.5 mg/dL (0.6-1.3); POTASSIUM 3.2 mmol/L (3.5-5.1); TOTAL BILIRUBIN 0.6 mg/dL (0.0-1.0)
--- NOTE | 2019-10-07 07:31 | NUR ---
BEDSIDE REPORT RECEIVED FROM [facility] NURSE, PT STABLE ON MONITOR, FLACC 0, HR 87,RR17,O2SAT 100%,BP 98/63,TEMP 97.6TA, PT OPENS EYES TO TOUCH, DOES NOT FOLLOW COMMANDS, PUPIL 3-2 BRISK, RESP EVEN UNLABORED, ON ETT TO VENT, 23 AT LIP, FIO2 28%, RR 16, VT 500, PEEP 5, HEART SOUNDS REGULAR, <2 CAP REFILL, PICC LINE TO KRISHNA SITE WNL, NGT IN PLACE, VITAL AF FEEDING ONGOING AT 55ML/HR AT THIS TIME, ABD SOFT, +BS X4Q, DAI DRAINING CLEAR YELLOW URINE TO GRAVITY, SKIN WARM COLOR WNL. ALL SAFETY MEASURES IN PLACE, POC REVIEWED, WILL CONTINUE TO MONITOR.
--- NOTE | 2019-10-07 07:32 | NUR ---
RECEIVED INTUBATED PT WITH A 7.5 ETT SECURED @22TEETH/GUM ON VENT. SETTINGS AC/VC 16, VT 500, PEEP 5 AND FIO2 28%. PT OPENS EYES BUT IS UNABLE TO FOLLOW COMMANDS. PT SUCTIONED OBTAINED SMALL AMOUNT OF THICK PALE YELLOW SECRETIONS, AIRWAY IS PATENT AND ETT IS SECURE. VENT IS PLUGGED INTO A RED OUTLET WITH ALARMS ON AND FUNCTIONING. AMBU BAG IS PRESENT NEAR BEDSIDE. WILL CONTINUE TO MONITOR.
[2019-10-07] MEDS: levETIRAcetam 500 MG in NACL 0.9% 100 ML IV SCH ×2 (08:30→21:40)
[2019-10-07] MEDS: TOPIRAMATE 25 MG TAB NG SCH ×2 (08:30→20:57)
[2019-10-07] MEDS: PANTOPRAZOLE 40 MG INJ VIAL IVP SCH ×2 (08:31→20:56)
[2019-10-07] MEDS: ENOXAPARIN 40 MG/0.4 ML SYR SUBQ SCH (08:31)
--- NOTE | 2019-10-07 11:50 | NUR ---
PT NOT SOB NOT IN ANY DISTRESS AT THIS TIME. AIRWAY IS PATENT. WILL CONTINUE TO MONITOR.
--- NOTE | 2019-10-07 12:09 | NUR ---
BROTHER AT BEDSIDE, PT OPENED EYES AND RESPONDS APPROPRIATELY BY NODDING AND SHAKING HEAD. FOLLOWS COMMANDS, PT CONTINUES ON ETT, RESP EVEN UNLABORED, VSS ON MONITOR, WILL CONTINUE TO MONTOR.
--- NOTE | 2019-10-07 13:46 | NUR ---
PT OPENS EYES WHEN SPOKEN TO, PT ABLE TO NOD HEAD WHEN ASKED QUESTIONS. PT NOT IN ANY DISTRESS AT THIS TIME. WILL CONTINUE TO MONITOR.
--- NOTE | 2019-10-07 15:51 | NUR ---
DR AUSTIN AT BEDSIDE
[2019-10-07] MEDS ORDERED: VANCOMYCIN PER PHARMACY MC PRN (15:55)
[2019-10-07] MEDS: CHLORHEXADINE GLUC 2% CLOTH TP SCH (16:00)
[2019-10-07] MEDS: MUPIROCIN CA NASAL 2% 1GM TUBE NS SCH (16:00)
[2019-10-07] MEDS: POTASSIUM CHLORIDE 20% 40 MEQ/15 ML UDC GT PRN (18:40)
--- NOTE | 2019-10-07 19:30 | NUR ---
RECEIVED REPORT FROM RN, NIRAJ, FOR CONTINUITY OF CARE. VS STABLE AT THIS TIME. FLACC 0. PT REMAINS LETHARGIC BUT OPENS EYES TO PAIN. UNABLE TO FOLLOW COMMANDS. PERRL. LUNG SOUNDS CLEAR. ETT TO VENT WITH SETTINGS: FIO2 28%, TV 500, R16, PEEP 5. RESPIRATIONS EVEN AND UNLABORED. CHEST RISE SYMMETRIC. S1+S2 HEARD. SR ON MONITOR. PULSES PALPABLE IN ALL EXTREMITIES. BS ACTIVE IN ALL QUADRANTS. ABDOMEN ROUND, SOFT AND NONDISTENDED. NGT THROUGH RIGHT NARES. NGT RESIDUAL 20ML. TOLERATING FAIRLY. DAI CATHETER IN PLACE. DRAINING CLEAR AND YELLOW URINE. SKIN IS WARM AND DRY. PT HAS RECTAL TUBE IN PLACE. DRAINING WATERY BM. PT HAS PERIPHERAL IV ACCESS ON RIGHT AC. RIGHT UPPER ARM PICC LINE IN PLACE. ALL IV SITES ARE PATENT INTACT AND ASYMPTOMATIC. PT TURNED AND REPOSITIONED. ORAL CARE PROVIDED. PT HAS NS RUNNING AT 85ML/HR. HOB AT 30 DEGREES. ALL SAFETY PRECAUTIONS ARE IN PLACE. WILL CONTINUE TO MONITOR PT.
--- NOTE | 2019-10-07 22:20 | NUR ---
PT CLEANED D/T RECTAL TUBE NOTED TO BE LEAKING. NO FURTHER SKIN BREAKDOWN NOTED ON PT. PT TURNED AND REPOSITIONED. TOLERATED FAIRLY. ORAL SUCTIONING PROVIDED. HOB AT 30 DEGREES. ALL SAFETY PRECAUTIONS ARE IN PLACE. WILL CONTINUE TO MONITOR PT.
--- NOTE | 2019-10-07 22:55 | NUR ---
REPORT GIVEN TO ANOTHER RN FOR CONTINUITY OF CARE.
[2019-10-08] VITALS (29 sets, daily range): BP systolic 91–138; BP diastolic 52–87
[2019-10-08] MEDS: Z-GUARD PASTE TP SCH ×2 (01:11→13:21)
[2019-10-08] MEDS: GAUZE TP SCH ×2 (01:12→13:21)
--- NOTE | 2019-10-08 02:26 | NUR ---
0220 sxned patient large amt of yellow thich secretions
[2019-10-08 04:48] LABS: CARBON DIOXIDE 22.7 mmol/L (21-32); CREATININE 0.5 mg/dL (0.6-1.3); POTASSIUM 3.7 mmol/L (3.5-5.1)
--- NOTE | 2019-10-08 05:15 | NUR ---
CALLED PHARMACY, SPOKE WITH AIMEE, REPORTED VANCO TROUGH 16.7; ACCORDING TO HIM, GIVE DOSE.
[2019-10-08] MEDS: PIPERACILLIN/TAZOBACTAM 3.375 GM in DEXTROSE 5% 50 ML IV SCH (05:44)
[2019-10-08] MEDS: VANCOMYCIN 1,000 MG in DEXTROSE 5% 250 ML IV SCH (05:45)
[2019-10-08] MEDS: BLOOD GLUCOSE MONITORING 1 DEV DEV FS SCH ×4 (05:46→18:08)
[2019-10-08] MEDS: LACTULOSE 20 GM/30 ML UDC PO SCH ×4 (05:51→18:51)
[2019-10-08 06:00] LABS: BASOPHILS % (AUTO) 0.3 % (0.0-2.0); EOSINOPHILS # (AUTO) 0.4 K/uL (0-0.4); EOSINOPHILS % (AUTO) 5.6 % (0.0-4.0); HEMATOCRIT 29.3 % (36-48); HEMOGLOBIN 9.6 g/dL (12.0-16.0); LYMPHOCYTES # (AUTO) 1.1 K/uL (2.5-16.5); LYMPHOCYTES % (AUTO) 15.1 % (20.5-51.1); MEAN CORPUSCULAR HEMOGLOBIN 31 pg (27-31); MEAN CORPUSCULAR HGB CONC 33 g/dL (33-37); MEAN CORPUSCULAR VOLUME 95.7 fL (80-94); MONOCYTES # (AUTO) 0.5 K/uL (0.8-1.0); MONOCYTES % (AUTO) 6.1 % (1.7-9.3); NEUTROPHILS # (AUTO) 5.4 K/uL (1.8-7.7); NEUTROPHILS % (AUTO) 72.9 % (42.2-75.2); PLATELET COUNT (AUTO) 187 K/uL (140-450); RED BLOOD CELL COUNT(AUTO) 3.06 MIL/uL (4.20-5.40); RED CELL DISTRIBUTION WIDTH 15.9 % (11.6-13.7); WHITE BLOOD COUNT (AUTO) 7.4 K/uL (4.8-10.8)
--- NOTE | 2019-10-08 08:00 | NUR ---
INITIAL SHIFT ASSESSMENT DONE (SEE ASSESSMENT PART). LETHARGIC BUT EASILY AROUSABLE TO NAME CALLING. DOES NOT FOLLOW COMMAND. NO SIGNS OF PAIN OR AGITATION NOTED. ON VENTILATOR, TOLERATING CURRENT SETTINGS WELL. O2 SAT 100%. SR ON MONITOR. SBP IN 90'S-100'S. NO ECTOPY NOTED. ON TUBE FEEDING, TOLERATING WELL. NO RESIDUALS NOTED. HOB ELEVATED. UPDATED OF PLAN OF CARE. WILL CONTINUE TO MONITOR.
--- NOTE | 2019-10-08 08:24 | NUR ---
RECEIVED INTUBATED PT WITH A 7.5 ETT SECURED @23TEETH/GUM ON VENT. SETTINGS AC/VC 16, VT 500, PEEP 5 AND FIO2 28%. PT IS ASLEEP AT THIS TIME NOT IN ANY DISTRESS. VENT IS PLUGGED INTO A RED OUTLET WITH ALARMS ON AND FUNCTIONING. ETT IS SECURE WITH A PATENT AIRWAY. WILL CONTINUE TO MONITOR.
[2019-10-08] MEDS: NACL 0.9% 1,000 ML IV SCH ×2 (08:34→21:49)
[2019-10-08] MEDS: PANTOPRAZOLE 40 MG INJ VIAL IVP SCH ×2 (08:39→21:36)
[2019-10-08] MEDS: TOPIRAMATE 25 MG TAB NG SCH ×2 (08:40→21:36)
[2019-10-08] MEDS: ENOXAPARIN 40 MG/0.4 ML SYR SUBQ SCH (08:40)
[2019-10-08] MEDS: levETIRAcetam 500 MG in NACL 0.9% 100 ML IV SCH ×2 (08:46→21:47)
--- NOTE | 2019-10-08 10:00 | NUR ---
RESTING IN BED. NO SIGNS OF PAIN OR AGITATION NOTED. TOLERATING VENTILATOR WELL. O2 SAT 100%. SR ON MONITOR. SBP IN 100'S-120'S. NO ECTOPY NOTED. HOB ELEVATED. WILL CONTINUE TO MONITOR.
--- NOTE | 2019-10-08 10:46 | NUR ---
DR FERNANDO IS IN THE ROOM. UPDATED OF STATUS. NEW ORDERS RECEIVE. CALLED RT MUSA FOR DR FERNANDO'S NEW ORDER.
--- NOTE | 2019-10-08 10:50 | NUR ---
RT VIGIL PUT PATIENT ON CPAP TRIAL PER DR FERNANDO'S ORDER. WILL CONTINUE TO MONITOR.
--- NOTE | 2019-10-08 10:50 | NUR ---
PT PLACED ON SBT CPAP 5 PS 10 FIO2 28% PER WILL CONTINUE TO MONITOR.
--- NOTE | 2019-10-08 11:50 | NUR ---
RT MUSA PUT PATIENT BACK TO AC MODE AT THIS TIME AFTER RT NOTED MULTIPLE APNEIC EPISODES. WILL CONTINUE TO MONITOR.
--- NOTE | 2019-10-08 11:50 | NUR ---
PT RETURNED TO AC/VC DUE TO MULTIPLE EPISODES OF APNEA, INADEQUATE VT AND FLUCTUATING RR. PT WEANING PARAMETERS ALSO INADEQUATE. NURSE MADE AWARE. WILL CONTINUE TO MONITOR.
--- NOTE | 2019-10-08 12:00 | NUR ---
REASSESSMENT DONE. NEURO STATUS UNCHANGED. NO SIGNS OF PAIN OR AGITATION NOTED. TOLERATING CURRENT VENTILATOR SETTINGS WELL. O2 SAT 100%. ST ON MONITOR. SBP IN 100-120'S. NO ECTOPY NOTED. HOB ELEVATED. UPDATED OF PLAN OF CARE. WILL CONTINUE TO MONITOR.
--- NOTE | 2019-10-08 13:25 | NUR ---
DISCHARGE PLANNIN59 Y/O FEMALE PATIENT FROM [facility], WHO CAME IN DUE TO ALTERED LEVEL OF CONSCIOUSNESS. INITIAL DIAGNOSIS OF HEPATIC ENCEPHALOPATHY AND SEIZURE. PAST MEDICAL HISTORY INCLUDE DEMENTIA, LIVER CIRRHOSIS OF UNCLEAR ETIOLOGY. LABS ON ADMISSION WBC 11.0 - 7.4, AMMONIA LEVEL 78 - 34. NEURO CONSULT WITH DR. FREDERICK FOR HEPATIC ENCEPHALOPATHY AND SEIZURES. ON ROCEPHIN AND KEPPRA IV. HEAD CT SHOWED ATROPHY,ATHEROSCLEROSIS AND NON SPECIFIC WHITE MATTER CHANGES. CXR SHOW LOW LUNG VOLUMES. INTUBATED IN THE ED, PLACED ON VENT FIO2 30%, TODAY FIO2 28%. WILL BE PLACED ON WEANING TRIALS TODAY, IF TOLERATED WILL EXTUBATE PATIENT. ON CONTACT PRECAUTION RE: SONU LAI. TENTATIVE DC PLAN TO GO BACK TO [facility]. Addendum: 10/10/19 at 0850 by Marce Cabrera STILL ORALLY INTUBATED TO VENT FIO2 28%. CURRENT LABS INCLUDE WBC 9.0, H/H 8.5/26.1, NA/K 148/3.4. PER NEUROLOGIST TO INCREASE KEPPRA AND TO DISCONTINUE TOPAMAX. LATEST CXR SHOWED NO INFILTRATES. RIGHT ARM PICC LINE IN PLACE. WITH OGT AND FC IN PLACE. FOR CPAP TRIAL TODAY. Addendum: 10/15/19 at 0950 by Marce Cabrera CM STILL ORALLY INTUBATED FIO2 24%. RIGHT UPPER ARM PICC LINE. STILL ON KEPPRA AND ROCEPHIN IV. NEURO CONSULT IN PLACE. ON TUBE FEEDING. FOR CPAP WEANING. Addendum: 10/16/19 at 0845 by Marce Cabrera STILL IN ICU. ORALLY INTUBATED, FIO2 24%. FAILED CPAP WEANING YESTERDAY, PATIENT BECAME TACHYCARDIC HR 140'S, RR 45'S AND WAS PLACED BACK TO AC MODE. DR GUZMAN CONSULTED FOR TRACH AND PEG PLACEMENT. PER NURSE'S NOTES, PATIENT'S SON CONSENTED FOR THE PROCEDURE. ON KEPPRA AND PROTONIX IV. DC PLAN PENDING ON PATIENT'S RESPONSE TO TREATMENT. Addendum: 10/17/19 at 0957 by Marce Cabrera CM S/P TRACH WITH PORTEX #8 AND PEG PLACEMENT 10/16/[address] GUZMAN. STILL ON VENT FIO2 28%. CURRENT LABS INCLUDE WBC 7.6, H/H 8.5/26.1. NA/K 147/3.4. ON PROTONIX AND KEPPRA IV. E COLI URINE C/S. SURGICAL AND NEURO CONSULTS IN PLACE. LATEST CXR SHOWED NO INFILTRATES. DC PLAN IS STILL PENDING ON PATIENT'S RESPONSE TO TREATMENT. CM TO FOLLOW UP. Addendum: 10/18/19 at 1055 by Marce Cabrera CM 0830: RECEIVED AN ORDER FOR SUB ACUTE EVAL CONTACTED [facility] BHAVANI REGARDING ORDER. SHE STATED SHE WILL EMAIL ME LIST OF CONTRACTED SUB ACUTE FACILITIES. RECEIVED THE LIST. CONTACTED PATIENT'S SON MAYRA JARAMILLO AT [phone], INFORMED HIM OF THE DC PLAN. HE STATED HE WANTS SOMETHING CLOSER TO HOME. PROVIDED HIM WITH [facility], [facility] AND [facility] [employer] [address] HE STATED THEY HAVE BEEN WANTING THE PATIENT TO GO TO [facility], BUT THEN THERE WAS NO BED AVAILABILITY AT THAT TIME. HE STATED THE FAMILY AND THE PATIENT WILL BE SO HAPPY AND GRATEFUL IF PATIENT CAN GO THERE. CONTACTED [facility] AT [phone], ABLE TO SPEAK TO IRAIS. SHE STATED THEY HAVE AN AVAILABLE BED AT THIS TIME PENDING ANOTHER REFERRAL BUT SHE SAID IF SHE WILL NOT HEAR BACK FROM THAT REFERRAL WITHIN 2 HOURS, SHE WILL REVIEW THIS ONE. SHE ALSO REQUESTED TO GO AHEAD AND FAX OVER THE REFERRAL. REFERRAL SENT. Addendum: 10/18/19 at 1104 by Marce Cabrera CM RECEIVED A CALL FROM CORRINE OF [facility], SHE CONFIRMED THAT THEY HAVE RECEIVED THE REFERRAL AND CURRENTLY THEY DO NOT HAVE A FEMALE BED BUT WILL REVIEW THE REFERRAL AND WILL GIVE ME A CALL WHEN BED IS AVAILABLE. Addendum: 10/18/19 at 1216 by Marce Cabrera CM CONTACTED PATIENT'S SON MAYRA, MADE HIM AWARE THAT [facility] DOES NOT HAVE A BED AT THIS TIME. HE STATED TO GO AHEAD AND SEND REFERRAL TO [facility]. REFERRAL SENT. Addendum: 10/18/19 at 1433 by Marce Cabrera CM RECEIVED A CALL FROM ALPESH HADDAD [facility], SHE STATED CLINICALLY THEY CAN ACCEPT THE PATIENT BUT THEY DO NOT HAVE A FEMALE SUB ACUTE BED AT THIS TIME. INQUIRY FAXED TO DIANE ELLIS, JIN DUFFY AND SHERMAN BLACKWELL. CONTACTED DIANE ELLIS AT [phone], ABLE TO SPEAK TO BRE (COORDINATOR). SHE STATED TIERA ALVARADO IS NOT IN FOR THE MOMENT AND WILL RELAY THE MESSAGE. CONTACTED SHERMAN BLACKWELL AT [phone], ABLE TO SPEAK TO MARI (MARKETING). SHE STATED SHE WILL CHECK WITH SHARATH ([facility]) AND WILL CALL ME BACK. CONTACTED JIN DUFFY AT [phone], SPOKE TO KEVEN (INTAKE). NO BEDS AT THIS TIME. Addendum: 10/18/19 at 1456 by Marce Cabrera CM RECEIVED A CALL FROM CHRISTOPHER OF [facility], STATING THEY ARE ABLE TO ACCEPT THE PATIENT AND WILL GO TO ROOM 302-[address]ER THE CARE OF DR. ARREGUIN AND DR. PENA THE EQUIPMENT OPERATION INSTRUCTOR. BHAVANI OF [facility] MADE AWARE. PRIMARY RN AWARE. CONTACTED PATIENT'S BROTHER MAYRA JARAMILLO AT [phone] AND SON CHERRY COOK AT [phone] REGARDING [facility]'S ACCEPTANCE. PROVIDED THEM BOTH OF THE ROOM WHERE THE PATIENT IS GOING. Addendum: 10/18/19 at 1521 by Marce Cabrera CM CONTACTED [facility] AT [phone], ABLE TO SPEAK TO CRISS. ROTARY PEEL OVEN TENDER WILL BE AT 1615. PRIMARY RN MADE AWARE. Addendum: 10/19/19 at 0302 by Marce Cabrera CM LATE ENTRY: AUTH FOR TRANSPORT [id number]
--- NOTE | 2019-10-08 13:44 | NUR ---
Late entry. THe start time on the 0.9 NS should read 1214 not 2148.
--- NOTE | 2019-10-08 13:46 | NUR ---
Late entry. Confirmed with RN that 0.9 ns at 100ml/hr ended at 1022.
--- NOTE | 2019-10-08 14:00 | NUR ---
RESTING IN BED. NO SIGNS OF PAIN OR AGITATION NOTED. TOLERATING VENTILATOR WELL. O2 SAT 100%. SR ON MONITOR. SBP IN 110'S. NO ECTOPY NOTED. HOB ELEVATED. WILL CONTINUE TO MONITOR.
--- NOTE | 2019-10-08 14:15 | NUR ---
Community Cultural Development Officer Note: Basic Screen: Yes High Risk DC Screen Yes Name: MAYRA JORDAN Home Relationship: SON Pre-Admission Living Arrangements: SNF Healthcare Decision Maker: Next of Kin Other: MAYRA JORDAN Discipline: Case Mgt/Social Svcs Tentative Discharge Plan/Destination: SNF/ECF Will require assistance post discharge: No Referred to [facility]: No Tentative Discharge Plan Summary: Patient is a 59-year-old female admitted for hepatic encephalopathy. Patient has PMHX of dementia and liver cirrhosis of unclear etiology. Patient was admitted from [facility]. SW contacted Xena, nurse of patient at [facility]. Per Xena, patient is a retirement patient and is on a bed hold. Patient does not have an advanced directive on file and her healthcare decision maker is her son, Mayra Jordan [phone]. Patient's tentative discharge plan is to return to [facility]. No further needs identified. Signature: COLT Thompson Date: Oct 08, 2019 Time: 14:15
[2019-10-08] MEDS: MUPIROCIN CA NASAL 2% 1GM TUBE NS SCH (15:51)
[2019-10-08] MEDS: CHLORHEXADINE GLUC 2% CLOTH TP SCH (15:51)
--- NOTE | 2019-10-08 16:00 | NUR ---
REASSESSMENT DONE. NEURO STATUS STILL THE SAME. NO SIGNS OF PAIN OR AGITATION NOTED. TOLERATING CURRENT VENTILATOR SETTINGS WELL. O2 SAT 100%. SR ON MONITOR. SBP IN 100'S. NO ECTOPY NOTED. TOLERATING TUBE FEEDING WELL. NO RESIDUALS NOTED. HOB ELEVATED. UPDATED OF PLAN OF CARE. WILL CONTINUE TO MONITOR.
--- NOTE | 2019-10-08 16:10 | NUR ---
GIVEN PARTIAL BATH AND LINENS ARE CHANGE. TOLERATED THE PROCEDURE WELL.
--- NOTE | 2019-10-08 18:00 | NUR ---
RESTING IN BED. NO SIGNS OF PAIN OR AGITATION NOTED. TOLERATING VENTILATOR WELL. O2 SAT 100%. SR ON MONITOR. SBP IN 100'S. NO ECTOPY NOTED. HOB ELEVATED. WILL CONTINUE TO MONITOR.
[2019-10-09] VITALS (27 sets, daily range): BP systolic 82–141; BP diastolic 46–83
[2019-10-09] MEDS: BLOOD GLUCOSE MONITORING 1 DEV DEV FS SCH ×5 (00:03→23:11)
[2019-10-09] MEDS: Z-GUARD PASTE TP SCH ×2 (01:00→13:00)
[2019-10-09] MEDS: GAUZE TP SCH ×2 (01:00→13:00)
[2019-10-09 06:14] LABS: ANION GAP 13.4 (8-16); CARBON DIOXIDE 21.9 mmol/L (21-32); CREATININE 0.6 mg/dL (0.6-1.3); POTASSIUM 3.3 mmol/L (3.5-5.1)
[2019-10-09] MEDS: LACTULOSE 20 GM/30 ML UDC PO SCH ×5 (06:15→23:11)
[2019-10-09 06:33] LABS: HEMATOCRIT 27.9 % (36-48); HEMOGLOBIN 9.1 g/dL (12.0-16.0); MEAN CORPUSCULAR HEMOGLOBIN 32 pg (27-31); MEAN CORPUSCULAR HGB CONC 33 g/dL (33-37); MEAN CORPUSCULAR VOLUME 96.3 fL (80-94); PLATELET COUNT (AUTO) 212 K/uL (140-450); RED BLOOD CELL COUNT(AUTO) 2.89 MIL/uL (4.20-5.40); WHITE BLOOD COUNT (AUTO) 7.3 K/uL (4.8-10.8)
--- NOTE | 2019-10-09 07:11 | NUR ---
RECEIVED PT ON DOCUMENTED SETTINGS, ALARMS ARE ON AND AUDIBLE, PTS ETT IS SECURE SIZE 7.5 22 CM ANCHOR FAST IN PLACE, BS RHONCHI I\L SX LG YELLOW SECRETIONS, PT IN HF AWAKE, BMV HOB , VENT PLUGGED INTO RED OUTLET, WILL CONTINUE TO MONITOR
[2019-10-09 07:36] LABS: EOSINOPHILS % (MANUAL) 8 % (0-4); LYMPHOCYTES % (MANUAL) 16 % (20-46); MONOCYTES % (MANUAL) 8 % (5-12)
--- NOTE | 2019-10-09 09:40 | NUR ---
RECEIVED REPORT FROM 7PM RN.
--- NOTE | 2019-10-09 11:15 | NUR ---
PATIENT W/ VOMITUS OF TUBE FEEDING DR HAWKINS AND RESP AT BS, TUBE FEEDING HELD. RESPIRATORY DEEP SUCTIONED THE PATIENT. AT PRESENT IN NO APPARENT DISTRESS.
[2019-10-09] MEDS ORDERED: levETIRAcetam 750 MG in NACL 0.9% 100 ML IV SCH (12:00)
--- NOTE | 2019-10-09 12:00 | NUR ---
PATIENT RESTING QUIETLY, S/P ZOFRAN IVP, NO N/V NOTED. REPOSITIONED, PATIENT TOLERATED WELL. NAD NOTED.
[2019-10-09] MEDS: PANTOPRAZOLE 40 MG INJ VIAL IVP SCH ×2 (12:08→20:26)
[2019-10-09] MEDS: ENOXAPARIN 40 MG/0.4 ML SYR SUBQ SCH (12:15)
[2019-10-09] MEDS: NACL 0.9% 1,000 ML IV SCH ×2 (12:19→23:00)
--- NOTE | 2019-10-09 14:20 | NUR ---
ON ROUNDS: PATIENT RESTING QUIETLY, REPOSITIONED, PATIENT TOLERATED WELL. NAD NOTED.
--- NOTE | 2019-10-09 14:45 | NUR ---
10/09/19 RD FOLLOW UP COMPLETED PLEASE REFER TO NUTRITION ASSESSMENT UNDER CARE ACTIVITY FOR ESTIMATED NUTRITIONAL NEEDS. 1. CONTINUE VITAL @ 55 ML/HR WHEN APPROPRIATE -THIS PROVIDES 1320 ML OF VOLUME, 1584 KCAL, AND 99 GM OF PROTEIN WHICH MEETS 100% OF ESTIMATED KCAL AND PROTEIN NEEDS 2. CONTINUE FWF 125 ML Q6H 3. IF/WHEN PT IS EXTUBATED AND TOLERATING WELL, CONSIDER A SWALLOW EVAL TO BEGIN PO INTAKE 4. RD TO FOLLOW-UP 2-3 DAYS, HIGH RISK EMERSON PAYAN RD
[2019-10-09] MEDS: CHLORHEXADINE GLUC 2% CLOTH TP SCH (16:00)
[2019-10-09] MEDS: MUPIROCIN CA NASAL 2% 1GM TUBE NS SCH (16:00)
--- NOTE | 2019-10-09 16:30 | NUR ---
PATIENT AWAKE, CALM AND QUIET, OLI CARE, DAI CARE, MOUTH CARE, AND COMFORT CARE W/ LINEN CHANGE COMPLETED. REPOSITIONED, PATIENT TOLERATED WELL. NAD NOTED.
--- NOTE | 2019-10-09 19:10 | NUR ---
PATIENT RESTING QUIETLY, W/ EYES OPEN, I & O DONE. REPORT TO 7PM RN AT BEDSIDE. TF CONT. ON HOLD, ENDORSED TO ONCOMING RN TO F/U W/ MD DISPOSITION.
--- NOTE | 2019-10-09 19:15 | NUR ---
RECIEVED PT FROM AM SHIFT. PT OPENS EYES SPONTANEOUSLY. RESPONDS TO VERBAL AND TACTILE STIMULI. ETT 7.5 @ 21 AC 16 VT 500 FIO2 28 PEEP 5. REINSERTED OGT. DT ASPIRATION. FEEDING HELD AT THIS TIME RECTAL TUBE IN PLACE. F/C IN PLACE. SR ON MONITOR. AFEBRILE. BED IN LOWEST POSITION. CALL LIGHT WITHIN REACH. WILL CONTINUE TO MONITOR,
--- NOTE | 2019-10-09 19:40 | NUR ---
PT RECEIVED FROM DAY SHIFT ON AC 16,500,+5,28%. VENT PLUGGED INTO RED OUTLET. BMV AT BEDSIDE. PT SOUNDS COURSE SAT 97-98%. WILL CONT. TO MONITOR
[2019-10-09] MEDS: levETIRAcetam 750 MG in NACL 0.9% 100 ML IV SCH (20:26)
[2019-10-09] MEDS: POTASSIUM CHLORIDE 20% 40 MEQ/15 ML UDC GT PRN (20:26)
--- NOTE | 2019-10-09 20:53 | NUR ---
PT CLEANED AND REPOSITIONED. NO SIGNS OF ACUTE DISTRESS AT THIS TIME. BED IN LOWEST POSITIONED. SUCTIONED ETT. THICK, WHITE, CREAMY SECREATIONS NOTED.
--- NOTE | 2019-10-09 22:15 | NUR ---
PT REPOSITIONED. ORAL CARE PROVIDED AT THIS TIME. NO SIGNS OF ACUTE DISTRESS NOTED. CALL LIGHT WITHIN REACH. WILL CONTINUE TO OBSERVE.
--- NOTE | 2019-10-09 23:15 | NUR ---
BLOOD SUGAR 135 mg/dL. NO COVERAGE NEEDED. WILL CONTINUE TO OBSERVE.
[2019-10-10] VITALS (24 sets, daily range): BP systolic 86–125; BP diastolic 49–80
--- NOTE | 2019-10-10 | NUR ---
PT AFEBRILE. NO SIGNS OF ACUTE DISTRESS. VAP ORAL CARE PROVIDED.
[2019-10-10] MEDS: GAUZE TP SCH ×2 (00:09→12:01)
[2019-10-10] MEDS: Z-GUARD PASTE TP SCH ×2 (00:10→12:01)
--- NOTE | 2019-10-10 02:30 | NUR ---
AM CARE PROVIDED AT THIS TIME. PT REPOSITIONED TO OFFLOAD PRESSURE AREAS. NO SIGNS OF ACUTE DISTRESS AT THIS TIME. CONTINUE TO OBSERVE.
--- NOTE | 2019-10-10 04:00 | NUR ---
LAB AT BEDSIDE AT THIS TIME FOR AM DRAWS. WILL CONTINUE TO MONITOR.
[2019-10-10] MEDS: LACTULOSE 20 GM/30 ML UDC PO SCH ×3 (05:14→17:36)
[2019-10-10] MEDS: BLOOD GLUCOSE MONITORING 1 DEV DEV FS SCH ×3 (05:14→17:51)
[2019-10-10 06:22] LABS: ANION GAP 15.8 (8-16); CARBON DIOXIDE 19.6 mmol/L (21-32); CREATININE 0.5 mg/dL (0.6-1.3); POTASSIUM 3.4 mmol/L (3.5-5.1)
[2019-10-10 06:23] LABS: BASOPHILS % (AUTO) 0.4 % (0.0-2.0); EOSINOPHILS # (AUTO) 0.2 K/uL (0-0.4); EOSINOPHILS % (AUTO) 2.3 % (0.0-4.0); HEMATOCRIT 26.1 % (36-48); HEMOGLOBIN 8.5 g/dL (12.0-16.0); LYMPHOCYTES # (AUTO) 1.6 K/uL (2.5-16.5); LYMPHOCYTES % (AUTO) 17.4 % (20.5-51.1); MEAN CORPUSCULAR HEMOGLOBIN 32 pg (27-31); MEAN CORPUSCULAR HGB CONC 32 g/dL (33-37); MEAN CORPUSCULAR VOLUME 97.4 fL (80-94); MONOCYTES # (AUTO) 0.8 K/uL (0.8-1.0); MONOCYTES % (AUTO) 9.4 % (1.7-9.3); NEUTROPHILS # (AUTO) 6.3 K/uL (1.8-7.7); NEUTROPHILS % (AUTO) 70.5 % (42.2-75.2); PLATELET COUNT (AUTO) 269 K/uL (140-450); RED BLOOD CELL COUNT(AUTO) 2.68 MIL/uL (4.20-5.40); RED CELL DISTRIBUTION WIDTH 15.8 % (11.6-13.7)
--- NOTE | 2019-10-10 06:34 | NUR ---
NO SIGNS OF ACUTE DISTRESS AT THIS TIME. BED IN LOWEST POSITION. CALL LIGHT WITHIN REACH,
--- NOTE | 2019-10-10 06:42 | NUR ---
PAGED DR. FERNANDO REGARDING K 3.4 WILL AWAIT CALL BACK
--- NOTE | 2019-10-10 07:06 | NUR ---
PAGED DR. FERNANDO REGARDING K 3.4 WILL AWAIT CALL BACK
--- NOTE | 2019-10-10 07:12 | NUR ---
ENDORSED CARE TO INCOMING SHIFT RN FOR CONTINUITY OF CARE.
--- NOTE | 2019-10-10 07:17 | NUR ---
REC'D PT ON CARESCAPE VENT SETTINGS AC 16 VT 500 PEEP 5 FIO2 28% ALARMS ON AND AUDIBLE AND AMBU BAG AT SIDE OF VENT AND VENT IS PLUGGED INTO RED OUTLET, NO HHN NEEDED AT THIS TIME NO SOB OR DISTRESS NOTED, SXN PT LARGE AMT OF THICK YELLOW SECRETIONS, B\S ARE RHONCHI BILATERALLY CHANGED HME AND PT IS ORALLY INTUBATED WITH 7.5 ET TUBE SECURED WITH ANCHOR FAST AT 22 CM PT IS RESTING
--- NOTE | 2019-10-10 07:30 | NUR ---
RECEIVED PT FROM NIGHT NURSE, RESTING, EASILY AROUSABLE. A&OX 0. RESPONDS TO PAINFUL STIMULI ONLY. UNABLE TO FOLLOW SIMPLE COMMANDS. PERRL. LUNGS RHONCHI @ THIS TIME, DIMINISHED BILATERALLY TO BILATERAL LOWER LOBES. INTUBATED WITH VENT. BOWEL SOUNDS ACTIVE X4 WITH OG TUBE PATENT. MASD NOTED TO INNER GROIN, INTACT WITHOUT S/S OF INFECTION. INDWELLING CATH DRAINING CLEAR, STRAW-COLORED URINE TO GRAVITY. RECTAL TUBE INTACT W GREEN STOOL NOTED. HEELS OFFLOADED W SCAB TO LT SECOND TOE OBSERVED. BED LOW AND LOCKED AND CALL LIGHT LEFT WITHIN REACH. Addendum: 10/10/19 at 0758 by Natasha Dorman RN NON-PITTING EDEMA TO BILATERAL HANDS. +2 PITTING EDEMA TO BILATERAL LOWER EXTREMITIES NOTED.
[2019-10-10] MEDS: PANTOPRAZOLE 40 MG INJ VIAL IVP SCH ×2 (08:34→21:04)
[2019-10-10] MEDS: ENOXAPARIN 40 MG/0.4 ML SYR SUBQ SCH (08:37)
[2019-10-10] MEDS: NACL 0.9% 1,000 ML IV SCH ×2 (08:40→16:28)
[2019-10-10] MEDS: levETIRAcetam 750 MG in NACL 0.9% 100 ML IV SCH ×2 (09:41→21:04)
--- NOTE | 2019-10-10 10:28 | NUR ---
PAGED AND RECEIVED CALL FROM DR FERNANDO. MADE AWARE OF MORNING LAB RESULTS. ORDERED K-RIDER 20 mEQ IV. WILL CARRY OUT ORDER.
[2019-10-10] MEDS ORDERED: KCL 20 MEQ/WATER INJ PREMIX 100 ML IV SCH (11:00)
--- NOTE | 2019-10-10 11:00 | NUR ---
VSS. REPOSITIONED, VAP ORAL CARE PROVIDED. BED LOW AND LOCKED. CALL LIGHT LEFT WITHIN REACH.
--- NOTE | 2019-10-10 12:00 | NUR ---
PT EVALUATED BY DR FERNANDO. UPDATED PT CONDITION. PT NOT READY FOR EXTUBATION PER DOCTOR. NO NEW ORDERS AT THIS TIME.
--- NOTE | 2019-10-10 13:57 | NUR ---
OG TUBE IN PLACE. + PLACEMENT. RESIDUAL 0. CONTINUE ON OG TUBE FEEDING. IV SITE PATENT, NO INFILTRATION. SUCTIONED ET TUBE WITH THICK, GREENISH, SECRETIONS. TOLERATED WELL. NO DISTRESS. SR ON MONITOR. SPO2 @ 99%. CONTINUE ON SAME VENT SETTINGS.
--- NOTE | 2019-10-10 16:30 | NUR ---
VSS. VAP ORAL CARE PROVIDED. SUCTIONED. TOLERATED WELL. KEPT PT CLEAN AND DRY. REPOSITIONED. IV LINES PATENT WITHOUT S/S OF INFILTRATION. BED LEFT LOW AND LOCKED. CALL LIGHT LEFT WITHIN REACH.
--- NOTE | 2019-10-10 18:28 | NUR ---
VSS. PT RESTING IN BED. RESPONDS TO TACTILE STIMULI. REPOSITIONED. IV LINES PATENT, NO INFILTRATION NOTED. BED LOW AND LOCKED. CALL LIGHT WITHIN EASY REACH.
--- NOTE | 2019-10-10 19:19 | NUR ---
ENDORSED PT TO COMMERCIAL ESCROW OFFICER NURSE FOR CONTINUITY OF CARE. IN STABLE CONDITION AT THIS TIME.
--- NOTE | 2019-10-10 19:30 | NUR ---
RECEIVED PT FROM DAY SHIFT ON AC 16,500,+5, 28%. ALARMS AUDIBLE AND CLEAR. VENT PLUGGED INTO RED OUTLET. BMV AT BEDSIDE. WILL CONT. TO MONITOR
--- NOTE | 2019-10-10 19:45 | NUR ---
RECEIVED REPORT FROM AM NURSE. PT LETHARGIC. LOCALIZES TO PAIN. ETT TO VENT. ON ACVC SETTINGS. FIO2 28, TV 500, RATE 16, PEEP 5. PICC LINE KRISHNA, INTACT NS INFUSING AT 85ML/HR. SINUS RHYTHM ON MONITOR. LUNG SOUNDS CLEAR. OGT TO TUBE FEEDING. VITAL AF RUNNING AT 55ML/HR. RECTAL TUBE IN PLACE. SKIN WARM AND DRY. INCONTINENT DERMATITIS AND SCAB ON R 2ND TOE NOTED. DAI CATHETER IN PLACE. FLACC 0. HOB 30 DEGREES. BED LOCKED IN LOWEST POSITION.
--- NOTE | 2019-10-10 21:15 | NUR ---
PT PLACED ON CPAP AT 12/5. 28% PT TOLERATED VERY WELL. VT 548. SAT 98%. WILL MONITOR FOR ABOUT 1 HOUR.
--- NOTE | 2019-10-10 21:40 | NUR ---
PT REPOSITIONED. ORAL CARE PROVIDED. VITAL SIGNS STABLE. NO SOB NOTED. FLACC 0. HOB 30 DEGREES. BED LOCKED IN LOWEST POSITIONED. WILL CONTINUE TO MONITOR.
--- NOTE | 2019-10-10 22:35 | NUR ---
CALLED BY NATI FLORES. PT WAS GOING APMNEIC AND BACK UP MODE WAS GOING ON. PT IS PLACED BACK ON PREVIOUS SETTINGS
--- NOTE | 2019-10-10 23:15 | NUR ---
PT HAS EYES CLOSED. RESPIRATIONS EVEN AND UNLABORED. CHEST RISE SYMMETRIC. VITAL SIGNS STABLE. FLACC 0. DOES NOT APPEAR TO BE EXPERIENCING ANY DISCOMFORT. TOLERATING FEEDING WELL. HOB 30 DEGREES. BED LOCKED IN LOWEST POSITION. WILL CONTINUE TO MONITOR.
[2019-10-11] VITALS: BP 117/73
[2019-10-11] MEDS: LACTULOSE 20 GM/30 ML UDC PO SCH (00:34)
[2019-10-11] MEDS: GAUZE TP SCH (00:35)
[2019-10-11] MEDS: Z-GUARD PASTE TP SCH (00:35)
[2019-10-11] MEDS: BLOOD GLUCOSE MONITORING 1 DEV DEV FS SCH (00:36)
[2019-10-11] MEDS: INSULIN LISPRO SLIDING SCALE 100 UNITS/ML VIAL SUBQ PRN (00:38)
--- NOTE | 2019-10-11 01:00 | NUR ---
PT HAS EYES CLOSED. RESPIRATIONS EVEN AND UNLABORED. CHEST RISE SYMMETRIC. VITAL SIGNS STABLE. FLACC 0. DOES NOT APPEAR TO BE EXPERIENCING ANY DISCOMFORT. TOLERATING FEEDING WELL. ORAL CARE PROVIDED. HOB 30 DEGREES. BED LOCKED IN LOWEST POSITION. WILL CONTINUE TO MONITOR.
[2019-10-11 01:39] VITALS: BP 129/83
[2019-10-11 03:34] VITALS: BP 106/73
[2019-10-11] MEDS ORDERED: levETIRAcetam 100 MG/ML VIAL IV ONE (21:03)
[2019-10-12 07:34] VITALS: BP 100/74
[2019-10-12] MEDS: NACL 0.9% 1,000 ML IV SCH ×2 (08:06→20:18)
[2019-10-12] MEDS: PANTOPRAZOLE 40 MG INJ VIAL IVP SCH ×2 (08:12→21:00)
[2019-10-12] MEDS: ENOXAPARIN 40 MG/0.4 ML SYR SUBQ SCH (08:13)
[2019-10-12] MEDS: levETIRAcetam 750 MG in NACL 0.9% 100 ML IV SCH ×2 (08:15→21:00)
[2019-10-12] MEDS: GAUZE TP SCH (13:00)
[2019-10-12] MEDS: Z-GUARD PASTE TP SCH (13:00)
--- NOTE | 2019-10-12 13:00 | NUR ---
WOUND CARE RE-EVALUATION: SKIN CONDITION REMAIN THE SAME, NO NEW SKIN BREAKS, CONTINUE SAME INTERVENTIONS.
[2019-10-12] MEDS ORDERED: KCL 20 MEQ/WATER INJ PREMIX 200 ML IV ONE (16:46)
--- NOTE | 2019-10-12 19:05 | NUR ---
RECEIVED REPORT FROM AM NURSE. PT PERRL 3MM, BRISK, OPEN EYES SPONTANEOUSLY, LETHARGIC, PT ETT TO VENT SIZE 7.5 TAPED AT 22 AT TEETH, BREATHING REGULARLY, VENT SETTINGS, AC/VC FIO2 24%, TV 450, RR 12, FLOW 40, PEEP 5, LUNG SOUNDS CLEAR THROUGHOUT, HEART RATE REGULAR, SINUS RHYTHM, ON MONITOR, S1S2 PRESENT, CAP REFILL <3S, PULSES 2+ BILATERAL UPPER AND LOWER EXTREMITIES, ABDOMEN SOFT, ROUND, NONDISTENDED, NONTENDER, BOWEL SOUNDS ACTIVE IN ALL QUADRANTS, OG TUBE IN PLACE, RUNNING VITAL AF AT 55 ML/HR, WATER FLUSH AT 125 ML Q6HR, FECAL BAG IN PLACE DRAINING LIQUID BROWN STOOL, BLADDER, SOFT, ROUND, NONTENDER, DAI CATHETER IN PLACE DRAINING CLEAR YELLOW URINE. PT HAS RIGHT UPPER ARM PICC LINE INFUSING NS AT 85 ML/HR. HOB 30 DEGREES, SIDE RAILS UP X2, BED AT LOWEST POSITION, SEIZURE PRECAUTION IN PLACE.
[2019-10-12 20:00] VITALS: BP 125/79
[2019-10-12] MEDS ORDERED: levETIRAcetam 100 MG/ML VIAL IV ONE ×2 (20:03→20:27)
--- NOTE | 2019-10-12 21:15 | NUR ---
MEDICATIONS GIVEN. VAP ORAL CARE PERFORMED, SUCTIONED THICK SCANT, YELLOW MUCOUS. PT TOLERATED PROCEDURE WELL.
[2019-10-12 22:00] VITALS: BP 123/80
[2019-10-13] VITALS (23 sets, daily range): BP systolic 118–146; BP diastolic 61–91
--- NOTE | 2019-10-13 00:47 | NUR ---
VAP ORAL CARE PERFORMED, SUCTIONED SCANT, THICK, YELLOW MUCOUS. PT TOLERATED PROCEDURE WELL. WILL CONTINUE TO MONITOR.
[2019-10-13] MEDS: BLOOD GLUCOSE MONITORING 1 DEV DEV FS SCH ×4 (00:51→18:29)
[2019-10-13] MEDS: LACTULOSE 20 GM/30 ML UDC PO SCH ×4 (00:55→18:33)
[2019-10-13] MEDS: Z-GUARD PASTE TP SCH ×2 (01:00→13:00)
[2019-10-13] MEDS: GAUZE TP SCH ×2 (01:00→13:00)
--- NOTE | 2019-10-13 02:00 | NUR ---
PT AT BED EYES CLOSED BREATHING REGULARLY, ETT TO VENT. WILL CONTINUE TO MONITOR.
--- NOTE | 2019-10-13 04:36 | NUR ---
SUCTIONED PT. SUCTIONED THICK SCANT YELLOW MUCOUS.
--- NOTE | 2019-10-13 07:30 | NUR ---
RECEIVED REPORT FROM LUANA DAMIAN. SHE IS LETHARGIC ,ETT TO VENT,SETTING AC16 VT 500 FIO2 24% PEEP5 PICC LINE RT UPPER ARM INFUSING NS AT 85ML/HR OGT FEEDING WITH VITAL AF AT 55ML/MHR WATER FLUSF 125/6HR ABDOMEN SOFT B/S ACTIVE HAS RECTAL BAG DRAINLIQUID YELLOW STOOL.. F/C DRAIN LIGHT JEWELL URINE.
--- NOTE | 2019-10-13 07:34 | NUR ---
CHANGE OF SHIFT REPORT GIVEN TO AM NURSE. PT AT STABLE CONDITION AT THIS TIME
--- NOTE | 2019-10-13 07:53 | NUR ---
rec'd pt on carescape vent settings ac 16 vt 500 peep 5 fio2 24% alarms on and audible and ambu bag at hob no tx given at this time no sob, b\s are coarse bilaterally, sxn pt moderate amt of thick yellow secretions, pt is orally intubated with 7.5 et tube secured with anchor fast and pt is sleeping
[2019-10-13] MEDS: ENOXAPARIN 40 MG/0.4 ML SYR SUBQ SCH ×2 (08:38→09:00)
[2019-10-13] MEDS: PANTOPRAZOLE 40 MG INJ VIAL IVP SCH ×2 (08:39→20:51)
[2019-10-13] MEDS: levETIRAcetam 750 MG in NACL 0.9% 100 ML IV SCH ×2 (08:46→20:51)
--- NOTE | 2019-10-13 08:48 | NUR ---
REPOSITION ORAL CARE WITH VAP KIT. SCHEDULE MED GIVEN ORDERED.
--- NOTE | 2019-10-13 09:43 | NUR ---
DR. HAYWOOD AT BEDSIDE CHANGED PT TO CPAP 5 PS 10 FOR WEANING
--- NOTE | 2019-10-13 10:45 | NUR ---
pt failed cpap trial rr high low vt back on ac mode
--- NOTE | 2019-10-13 12:00 | NUR ---
BLOOD GLUCOSE 137 NO INSULIN COVER GIVEN,
[2019-10-13] MEDS: NACL 0.9% 1,000 ML IV SCH ×2 (12:30→21:09)
--- NOTE | 2019-10-13 14:00 | NUR ---
REPOSITION .SUCTION AND SKIN CARE GIVEN.
--- NOTE | 2019-10-13 16:00 | NUR ---
SKIN CARE ,REPOSITION ORAL CARE WITH VAP KIT.
--- NOTE | 2019-10-13 19:00 | NUR ---
RECEIVED BEDSIDE REPORT FROM CHARGE NURSE BRANDON. PATIENT IN BED, ON CONTACT PRECAUTIONS. HOB AT 30 DEGREES. ETT TO VENT. 24 CM AT LIP LINE. AC/VC FIO2 24 VT 500 RR 16 PEEP 5 PMAX 60. RHONCHI THROUGHOUT UPPER LOBES BILATERALLY. CHEST RISE EVEN AND SYMMETRICAL. V/S STABLE, SR ON MONITOR. CENTRAL IN IN PLACE, DRESSING INTACT. INFUSING NS AT 85 ML/HR. OGT IN PLACE. PLACEMENT CHECKED. TUBE FEEDINGS WITH VITAL AF 1.2 INFUSING AT 55 ML/HR WITH 125 WATER FLUSH Q4H. NO RESIDUALS NOTED. ABDOMEN FIRM AND DISTENDED. HYPOACTIVE BOWEL SOUNDS. GENERALIZED EDEMA NOTED. CAP REFILL LESS THAN [address]DS. RECTAL TUBE IN PLACE DRAINING LIGHT BROWN STOOL. DAI CATH IN PLACE DRAINING YELLOW URINE. BED IN LOWEST POSITION, WILL CONTINUE TO FREQUENTLY MONITOR.
--- NOTE | 2019-10-13 19:20 | NUR ---
PT.VITALGN STABLE REPORT GIVE TO AKHIL DAMIAN.
--- NOTE | 2019-10-13 21:00 | NUR ---
DUE MEDICATIONS GIVEN. EDUCATED PATIENT REGARDING USE AND POSSIBLE ADVERSE EFFECTS. BED IN LOWEST POSITION. V/S STABLE. WILL CONTINUE TO FREQUENTLY MONITOR.
--- NOTE | 2019-10-13 22:00 | NUR ---
REPOSITIONED PATIENT FOR COMFORT. REDISTRIBUTED PRESSURE OFF ALBERTO PROMINENCES. BED IN LOWEST POSITION. WILL CONTINUE TO FREQUENTLY MONITOR.
[2019-10-14] VITALS (24 sets, daily range): BP systolic 114–179; BP diastolic 69–132
--- NOTE | 2019-10-14 00:30 | NUR ---
DUE MEDICATIONS GIVEN. EDUCATION PROVIDED. ORAL CARE PROVIDED. TUBE FEEDINGS CHANGED. NO RESIDUALS NOTED. BED IN LOWEST POSITION. V/S STABLE. WILL CONTINUE TO FREQUENTLY MONITOR.
[2019-10-14] MEDS: LACTULOSE 20 GM/30 ML UDC PO SCH ×4 (00:33→17:28)
[2019-10-14] MEDS: Z-GUARD PASTE TP SCH ×2 (00:33→13:00)
[2019-10-14] MEDS: GAUZE TP SCH ×2 (00:33→13:00)
[2019-10-14] MEDS: BLOOD GLUCOSE MONITORING 1 DEV DEV FS SCH ×4 (00:34→17:23)
--- NOTE | 2019-10-14 02:25 | NUR ---
SUCTIONED PATIENT FOR HIGH PRESSURE ALARM. MODERATE THICK WHITE SECRETIONS NOTED. V/S STABLE. WILL CONTINUE TO FREQUENTLY MONITOR.
--- NOTE | 2019-10-14 04:00 | NUR ---
PATIENT REPOSITIONED FOR COMFORT. WILL CONTINUE TO MONITOR.
--- NOTE | 2019-10-14 06:00 | NUR ---
DUE MEDICATIONS GIVEN. SUCTIONED X 1. WILL CONTINUE TO MONITOR
--- NOTE | 2019-10-14 06:43 | NUR ---
RECEIVED PT ON CARESCAPE ON DOCUMENTED SETTINGS, ALARMS ARE ON AND AUDIBLE, PTS ETT IS SIZE 7.5 SECURE 24 CM, ANCHOR FAST IN PLACE, PT IN HF QUIET BS RHONCHI I\L SX LG YELLOW SECRETIONS, BMV HOB, VENT PLUGGED INTO RED OUTLET, WILL CONTINUE TO MONITOR
--- NOTE | 2019-10-14 07:20 | NUR ---
RECEIVED REPORT FROM AKHIL DAMIAN .PATIENT IS ORAL INTUBATED CONNECTED VENT SETTING UNCHANGED. IV HAS PICC LINE ON RT UPPER ARM. INFUSING NS AT 85 ML/HR. OGT FEEDING WITH VITAL AF AT SSML/HR WATER FLUSH 120ML/4HR ABDOMEN LORGE ROUND AND SOFT B/S ACTIVE. RECTAL TUBE DRAIN WATERY LOOSE BM.LARGE AMOUNT.DAI CATH DRAIN CLEAR JEWELL URINE.
--- NOTE | 2019-10-14 08:20 | NUR ---
REPOSITION. ORAL CARE WITH VAP KIT.
[2019-10-14] MEDS: levETIRAcetam 750 MG in NACL 0.9% 100 ML IV SCH ×2 (08:21→20:27)
[2019-10-14] MEDS: PANTOPRAZOLE 40 MG INJ VIAL IVP SCH ×2 (08:21→20:28)
[2019-10-14] MEDS: ENOXAPARIN 40 MG/0.4 ML SYR SUBQ SCH (08:23)
[2019-10-14 09:35] LABS: BASOPHILS # (AUTO) 0.1 K/uL (0.00-0.22); BASOPHILS % (AUTO) 0.7 % (0.0-2.0); EOSINOPHILS # (AUTO) 0.2 K/uL (0-0.4); EOSINOPHILS % (AUTO) 2.1 % (0.0-4.0); HEMATOCRIT 25.6 % (36-48); HEMOGLOBIN 8.4 g/dL (12.0-16.0); LYMPHOCYTES # (AUTO) 1.5 K/uL (2.5-16.5); LYMPHOCYTES % (AUTO) 15.3 % (20.5-51.1); MEAN CORPUSCULAR HEMOGLOBIN 33 pg (27-31); MEAN CORPUSCULAR HGB CONC 33 g/dL (33-37); MEAN CORPUSCULAR VOLUME 99.1 fL (80-94); MONOCYTES # (AUTO) 0.3 K/uL (0.8-1.0); NEUTROPHILS # (AUTO) 7.5 K/uL (1.8-7.7); NEUTROPHILS % (AUTO) 78.9 % (42.2-75.2); PLATELET COUNT (AUTO) 445 K/uL (140-450); RED BLOOD CELL COUNT(AUTO) 2.59 MIL/uL (4.20-5.40); RED CELL DISTRIBUTION WIDTH 20.3 % (11.6-13.7); WHITE BLOOD COUNT (AUTO) 9.5 K/uL (4.8-10.8)
[2019-10-14 09:38] LABS: ANION GAP 15.2 (8-16); CARBON DIOXIDE 23.4 mmol/L (21-32); CREATININE 0.4 mg/dL (0.6-1.3)
[2019-10-14 09:43] LABS: POTASSIUM 2.6 mmol/L (3.5-5.1)
--- NOTE | 2019-10-14 10:20 | NUR ---
PT FAILED SBT DR HAYWOOD AWARE
--- NOTE | 2019-10-14 10:30 | NUR ---
SEEN BY DR. HAYWOOD AT BED SIDE, ORDER RECEIVED.
[2019-10-14] MEDS: NACL 0.9% 1,000 ML IV SCH ×2 (11:30→17:29)
[2019-10-14] MEDS: POTASSIUM CHLORIDE 20% 40 MEQ/15 ML UDC GT SCH ×3 (11:38→20:26)
--- NOTE | 2019-10-14 12:00 | NUR ---
BLOOD GLUCOSE 138 NO INSULIN GIVEN. REPOSITION ORAL CARE WITH VAP KIT OGT RESIDUAL 12 ML/ FEEDING CONTINUE.
[2019-10-14 13:24] LABS: ANION GAP 12.5 (8-16); CARBON DIOXIDE 24.8 mmol/L (21-32); CREATININE 0.5 mg/dL (0.6-1.3); POTASSIUM 3.3 mmol/L (3.5-5.1)
--- NOTE | 2019-10-14 14:00 | NUR ---
REPOSITION , ORAL CARE WITH VAP KIT.
--- NOTE | 2019-10-14 16:00 | NUR ---
REPOSITION ORAL CARE WIT VAP KIT V/S WITH IN NORMAL LIMIT.
--- NOTE | 2019-10-14 17:30 | NUR ---
BLOOD GLUCOSE 128.
--- NOTE | 2019-10-14 18:00 | NUR ---
REPOSITION PT FOLLOW COMMAND , OPEN EYES..
--- NOTE | 2019-10-14 19:16 | NUR ---
PT SLEEPING , V/S WITH IN NORMAL LIMIT REPORT GIVE TO ESTEFANI DAMIAN.
--- NOTE | 2019-10-14 19:20 | NUR ---
Received pt stable on vent support at documented settings, suctioned moderated amounts of thick white yellow secretions, no resp distress or SOB noted at this time, 7.5 ETT secured with anchor fast at 24 cm at the lip, alarms set and audible, ambu bag at bedside, vent plugged into red outlet and wiped down, cont pulse ox on, will cont to monitor.
--- NOTE | 2019-10-14 19:30 | NUR ---
RECEIVED PATIENT ON BED WITH HOB ELEVATED TO 30 DEGREE, ALERT OPEN EYES TO CALLS AND ABLE TO FOLLOW SIMPLE TO COMMANDS. ORALLY INTUBATED AND VENTILATED AT 24% FIO2. CARDIACSCOPE SHOWS ON SINUS RHYTHM HR 93, NO ARRHYTHMIAS SEEN. IVF IN PROGRESS IS NORMAL SALINE AT 85 ML/HR VIA PICC LINE TO RIGHT UPPER ARM; PATENT AND INTACT. ABDOMEN SOFT AND OBESE, ACTIVE BOWEL SOUNDS. ON CONTINOUS TUBE FEEDING VITAL AF AT 55 ML/HR; TOLERATED. WITH RECTAL TUBE IN PLACE DRAINING TO WATERY BROWN OUTPUT; INTACT. VOIDING THRU DAI CATH TO GRAVITY DRAINAGE BAG;INTACT.
[2019-10-14 20:48] LABS: ANION GAP 13.9 (8-16); CARBON DIOXIDE 23.1 mmol/L (21-32); CREATININE 0.5 mg/dL (0.6-1.3)
[2019-10-15] VITALS (24 sets, daily range): BP systolic 117–148; BP diastolic 69–86
--- NOTE | 2019-10-15 | NUR ---
TURNED AND REPOSITIONED PATIENT, ORAL CARE DONE WITH VAP KIT.
[2019-10-15] MEDS: BLOOD GLUCOSE MONITORING 1 DEV DEV FS SCH ×5 (00:52→17:00)
[2019-10-15] MEDS: LACTULOSE 20 GM/30 ML UDC PO SCH ×4 (00:53→18:30)
[2019-10-15] MEDS: NACL 0.9% 1,000 ML IV SCH ×2 (01:30→14:30)
[2019-10-15] MEDS: GAUZE TP SCH ×2 (03:30→12:42)
[2019-10-15] MEDS: Z-GUARD PASTE TP SCH ×2 (03:30→12:47)
--- NOTE | 2019-10-15 04:00 | NUR ---
MORNING BED BATH DONE; KEPT CLEAN DRY AND COMFORTABLE.
[2019-10-15 06:21] LABS: HEMOGLOBIN 8.2 g/dL (12.0-16.0)
[2019-10-15 06:29] LABS: HEMATOCRIT 25.4 % (36-48); MEAN CORPUSCULAR HEMOGLOBIN 32 pg (27-31); MEAN CORPUSCULAR HGB CONC 32 g/dL (33-37); MEAN CORPUSCULAR VOLUME 98.9 fL (80-94); PLATELET COUNT (AUTO) 451 K/uL (140-450); RED BLOOD CELL COUNT(AUTO) 2.57 MIL/uL (4.20-5.40); RED CELL DISTRIBUTION WIDTH 19.1 % (11.6-13.7); WHITE BLOOD COUNT (AUTO) 8.2 K/uL (4.8-10.8)
[2019-10-15 06:36] LABS: ANION GAP 13.8 (8-16); CARBON DIOXIDE 23.9 mmol/L (21-32); CREATININE 0.5 mg/dL (0.6-1.3); MAGNESIUM 1.8 mg/dL (1.8-2.4); POTASSIUM 3.7 mmol/L (3.5-5.1); TOTAL BILIRUBIN 0.3 mg/dL (0.0-1.0)
--- NOTE | 2019-10-15 06:39 | NUR ---
REC'D PT ON CARESCAPE VENT SETTINGS AC16 VT 500 PEEP 5 FIO2 24% ALARMS ON AND AUDIBLE AND AMBU BAG AT HOB AND VENT IS PLUGGED INTO RED OUTLET, SXN PT MODRATE AMT OF THICK WHITE SECRETIONS, B\S ARE COARSE BILATERALLY, NO HHN NEEDED AT THIS TIME NO DISTRESS OR SOB NOTED, PT IS ORALLY INTUBATED WITH 7.5 ET TUBE SECURED WITH ANCHOR FAST AT 24 CM PT IS RESTING
[2019-10-15 06:57] LABS: LYMPHOCYTES % (MANUAL) 22 % (20-46); MONOCYTES % (MANUAL) 3 % (5-12)
--- NOTE | 2019-10-15 07:15 | NUR ---
ENDORSED TO AM SHIFT NATI MACIAS FOR CONTINUITY OF CARE.
--- NOTE | 2019-10-15 08:00 | NUR ---
PT. OPENS EYES WHEN NAME IS CALLED. ETT TO VENT TV 500, FI02 24% AC 16/MIN, PEEP 5. SUCTIONED MOD. AMT. MOD. WHITISH SECRETIONS. NO RESP. DISTRESS NOTED. IV 0.9NS AT 85 ML/HR VIA RT. UPPER ARM PICC LINE. OGT IN PLACE VERIFIED BY AIRCHECK. RESIDUAL 10 ML. TUBE FEEDING AT 55 ML/HR. HOB ELEVATED 30 DEGREES.NO N/V AT THIS TIME. RECTAL TUBE IN PLACE WITH LARGE AMT. LIQUID BROWNISH STOOLS.
[2019-10-15] MEDS: levETIRAcetam 750 MG in NACL 0.9% 100 ML IV SCH ×2 (09:03→21:09)
[2019-10-15] MEDS: PANTOPRAZOLE 40 MG INJ VIAL IVP SCH ×2 (09:05→21:09)
[2019-10-15] MEDS: ENOXAPARIN 40 MG/0.4 ML SYR SUBQ SCH (09:06)
--- NOTE | 2019-10-15 10:00 | NUR ---
DR. HAYWOOD HERE TO SEE AND EXAMINE PT. PLACED PT ON CPAP.
--- NOTE | 2019-10-15 10:15 | NUR ---
PT'S HR IN THE 140'S. RR 45/MIN. PT IS RESTLESS. DR. HAYWOOD AT BEDSIDE. PLACED PT BACK ON AC MODE, SAME SETTINGS.
[2019-10-15] MEDS: INSULIN LISPRO SLIDING SCALE 100 UNITS/ML VIAL SUBQ PRN (11:54)
--- NOTE | 2019-10-15 12:00 | NUR ---
AWAKE. FOLLOWS COMMANDS. NODDED HEAD YES WHEN ASKED IF SHE WANTS TO WATCH TV.
--- NOTE | 2019-10-15 13:30 | NUR ---
DR. GUZMAN HERE TO SEE PT. ATTEMPTED TO CALL AKANKSHA CAREY. NO ANSWER.
--- NOTE | 2019-10-15 13:45 | NUR ---
PT'S BROTHER MAYRA HERE. DR GUZMAN EXPLAINED TO PT'S BROTHER RE: PLAN FOR TRACHEOSTOMY AND PEG TOMORROW.
--- NOTE | 2019-10-15 14:00 | NUR ---
PT'S SON CHERRY CALLED. CONSENT OBTAINED FOR TRACHEOSTOMY AND PEG.
--- NOTE | 2019-10-15 14:00 | NUR ---
MAILE. GT FEEDING. RESIDUAL 15 ML.
--- NOTE | 2019-10-15 15:03 | NUR ---
10/15/19 RD FOLLOW UP COMPLETED PLEASE REFER TO NUTRITION ASSESSMENT UNDER CARE ACTIVITY FOR ESTIMATED NUTRITIONAL NEEDS. 1. CONTINUE VITAL @ 55 ML/HR -THIS PROVIDES 1320 ML OF VOLUME, 1584 KCAL, AND 99 GM OF PROTEIN WHICH MEETS 100% OF ESTIMATED KCAL AND PROTEIN NEEDS 2. CONTINUE FWF 125 ML Q6H 3. IF/WHEN PT IS EXTUBATED AND TOLERATING WELL, CONSIDER A SWALLOW EVAL TO BEGIN PO INTAKE 4. RD TO FOLLOW-UP 2-3 DAYS, HIGH RISK EMERSON PAYAN RD
--- NOTE | 2019-10-15 16:00 | NUR ---
MILL RECORDER SHOW ST WITHOUT ECTOPICS.
--- NOTE | 2019-10-15 18:00 | NUR ---
ETT TO VENT, TV 5OO, AC 16/MIN, PEEP 5, FI02 24%. SUCTIONED SMALL AMT. WHITISH SECRETIONS VIA ETT.
--- NOTE | 2019-10-15 19:00 | NUR ---
REPORT GIVEN TO NATI IBRAHIM.
--- NOTE | 2019-10-15 19:26 | NUR ---
RECEIVED PATIENT ENDOTRACHEALLY INTUBATED TO MECHANICAL VENTILATOR AT DOCUMENTED SETTINGS. VENT CHECK DONE. VENT ALARMS ON AND AUDIBL;E. VENT PLUGGED INTO REDF OUTLET WITH WHEELS LOCKED/ AMBU BAG AT [facility]. Addendum: 10/15/19 at 1929 by Namrata Robbins RT VENT ALARMS ON AND AUDIBLE. VENT PLUGGED INTO RED OUTLET WITH WHEELS LOCKED. AMBU BAG AT [facility]. AIRWAY SECURE AND PATENT. SUCTIONED SMALL AMOUNT OF THICK, YELLOW SECRETIONS. PRN HHN NOT INDICATED AT THIS TIME. NO ACUTE RESPIRATORY DISTRESS NOTED AT THIS TIME. WILL CONTINUE TO MONITOR.
--- NOTE | 2019-10-15 19:30 | NUR ---
RECEIVED REPORT FROM DAYSHIFT NURSE AT PATIENTS BEDSIDE. PATIENT HAS ETT TO VENT, ACVC 16, FI02 24%, TV 500, PEEP 5. LUNG SOUNDS ARE CLEAR, BREATHING IS EQUAL AND UNLABORED, O2 SAT 98%. S1S2, SR ON MONITOR. BILATERAL UPPER AND LOWER PULSES PALPATED. RIGHT UPPER ARM PICC LINE IN PLACE, INFUSING NS @ 85ML/HR. FLUSHED AND PATENT. OGT IN PLACE, AIR CHECK/AUSCULTATION CONFIRMED. RESIDUALS 5ML, VITAL AF TUBE FEEDING AT 55ML/HR. ABDOMEN IS SOFT AND NONTENDER, BOWEL SOUNDS IN ALL 4 QUADRANTS. DAI CATHETER IN PLACE WITH CLEAR YELLOW URINE NOTED. INCONTINENT DERMATITIS NOTED, SKIN INTACT, OPEN TO AIR, BARRIER CREAM APPLIED. RECTAL TUBE IN PLACE, WITH LIQUID LIGHT BROWN STOOL NOTED IN TUBE. HEEL PROTECTORS IN PLACE, PILLOWS IN PLACE TO OFFLOAD PRESSURE AREAS, LEFT FOOT, 2ND DIGIT NOTED WITH SMALL BROWN SCAB, CLERICAL ADVISER. HOB 30 DEGREES, SIDERAILS UP, BED LOCKED AND IN LOWEST POSITION. WILL CONTINUE TO MONITOR. Addendum: 10/16/19 at 0207 by Cristina Avila RN PATIENT ALERT TO NAME ONLY, ABLE TO NOD HEAD YES OR NO AND ABLE TO MOUTH SOME WORDS.
--- NOTE | 2019-10-15 20:40 | NUR ---
PATIENT TURNED AND REPOSITIONED, TOLERATED FAIRLY. VAP ORAL CARE PROVIDED, PATIENT WITHDRAWS TO LIGHT PAIN. SMALL AMOUNT OF WHITISH/CREAMY SECRETIONS SUCTIONED.
--- NOTE | 2019-10-15 23:40 | NUR ---
PATIENTS TUBE FEEDING IS COMPLETE, BUT NPO EXCEPT MEDS AFTER MIDNIGHT. CHECKED RESIDUALS-<5ML. DISCONNECTED TUBE FEEDING AND FLUSHED [place] ISREAL.
[2019-10-16] VITALS (22 sets, daily range): BP systolic 103–142; BP diastolic 58–91
[2019-10-16] MEDS: LACTULOSE 20 GM/30 ML UDC PO SCH ×4 (00:23→17:19)
[2019-10-16] MEDS: Z-GUARD PASTE TP SCH ×2 (00:23→13:30)
[2019-10-16] MEDS: GAUZE TP SCH ×2 (00:23→13:30)
--- NOTE | 2019-10-16 00:45 | NUR ---
PATIENT RESTING WELL IN BED, OPENS EYES SPONTANEOUSLY AND TO VOICE. ETT TO VENT, SETTINGS SAME START OF SHIFT, NS INFUSING AT 85 ML/HR. NO SIGNS OF DISTRESS NOTED/
--- NOTE | 2019-10-16 02:15 | NUR ---
VAP ORAL CARE PROVIDED, PATIENT AWAKE AND ALERT. PATIENT ABLE TO NOD HEAD NO WHEN ASKED IF SHE IS IN PAIN OR IF SHE IS FEELING ANXIOUS. REPOSITIONED AND TURNED TO OFFLOAD PRESSURE AREAS. HOB 30 DEGREES, BED LOCKED AND IN LOW POSITION, SEIZURE PRECAUTIONS IN PLACE.
[2019-10-16] MEDS: NACL 0.9% 1,000 ML IV SCH ×2 (03:24→17:30)
--- NOTE | 2019-10-16 04:10 | NUR ---
WARM SPONGE BATH PROVIDED AND CHG BATH GIVEN WELL PER SURGERY TODAY. ORAL CARE PROVIDED AND REAPPLIED BARRIER CREAM FOR INCONTINENT DERMATITIS. PATIENT ALERT AND UPDATED ON CAREPLAN, AND WILL ENDORSE TO RT, MD, AND A.M NURSE TO ATTEMPT ONE MORE CPAP TRIAL PRIOR TO SURGERY PER PATIENTS REQUEST. PATIENT NODS HEAD YES FOR UNDERSTANDING. OFFERED PATIENT PAIN MEDS AND ANXIETY MEDS, AND PT REFUSES. TOLERATED P.M CARE WELL.
--- NOTE | 2019-10-16 05:32 | NUR ---
FLEXISEAL BAG REPLACED, OUTPUT 600ML OF WATERY DIARRHEA. CHECKED SEAL AND SECURED BAG. DAI BAG EMPTIED-OUTPUT 1250ML OF CLEAR YELLOW URINE.
--- NOTE | 2019-10-16 06:51 | NUR ---
RECEIVED PT ON CARESCAPE ON DOCUMENTED SETTINGS, ALARMS ARE ON AND AUDIBLE, PTS ETT SIZE 7.5 SECURE [address] FAST IN PL[address], BS CLEAR, BMV HOB, VENT PLUGGED INTO RED OUTLET, WILL CONTINUE TO MONITOR PT IN HF AWAKE
--- NOTE | 2019-10-16 07:20 | NUR ---
RECEIVED REPORT FROM PM SHIFT NURSE . BEDSIDE MONITOR SHOWS SR. PATIENT HAS ETT TO VENT, AC 16, FI02 =24%, TV 500, PEEP 4. LUNG SOUNDS ARE CLEAR, NO S/S OF RESPIRATORY DISTRESS NOTED. BILATERAL UPPER AND LOWER PULSES PALPATED. RIGHT UPPER ARM PICC LINE IN PLACE, INFUSING 0.9 %NS @ 85ML/HR. FLUSHED AND PATENT. OGT IN PLACE, ABDOMEN IS SOFT,LARGE AND NONTENDER, BOWEL SOUNDS IN ALL 4 QUADRANTS. DAI CATHETER IN PLACE WITH CLEAR YELLOW URINE NOTED. RECTAL TUBE IN PLACE, WITH LIQUID LIGHT BROWN STOOL NOTED IN TUBE. HEEL PROTECTORS IN PLACE, LEFT FOOT THE 2ND DIGIT NOTED WITH SMALL BROWN SCAB, DINA. HOB 30 DEGREES IN LOWEST POSITION. SKIN NON INTACT ( SEE WOUND ASSESSMENT), WILL CONTINUE TO MONITOR. Addendum: 10/16/19 at 1012 by Dre Perea RN PT WILL HAVE TRACH AND G-TUBE PROCEDURE, SO PT IS NPO.
--- NOTE | 2019-10-16 08:50 | NUR ---
TURNED AND REPOSITIONED PT. ORAL CARE GIVEN. F/C CARE GIVEN. PT OPENS EYES WHILE TURNING PT. NO S/S OF RESPIRATORY DISTRESS NOTED.
--- NOTE | 2019-10-16 09:00 | NUR ---
APPLIED Z-GUARD CREAM TO RIGHT AND LEFT MEDIAL THIGHS. PT TOLERATED WELL.
[2019-10-16] MEDS: levETIRAcetam 750 MG in NACL 0.9% 100 ML IV SCH ×2 (09:07→21:33)
[2019-10-16] MEDS: PANTOPRAZOLE 40 MG INJ VIAL IVP SCH ×2 (09:07→21:34)
[2019-10-16] MEDS: ENOXAPARIN 40 MG/0.4 ML SYR SUBQ SCH (09:08)
[2019-10-16] MEDS: BLOOD GLUCOSE MONITORING 1 DEV DEV FS SCH ×3 (11:26→17:29)
--- NOTE | 2019-10-16 11:28 | NUR ---
PT RESTING IN BED. NO SITUATION CHANGE. VITALS STABLE. NO SOB.
--- NOTE | 2019-10-16 11:31 | NUR ---
AT BEDSIDE TO ASSESS PT.
[2019-10-16 12:05] LABS: BASOPHILS # (AUTO) 0.1 K/uL (0.00-0.22); BASOPHILS % (AUTO) 0.9 % (0.0-2.0); EOSINOPHILS # (AUTO) 0.2 K/uL (0-0.4); EOSINOPHILS % (AUTO) 3.2 % (0.0-4.0); HEMATOCRIT 25.8 % (36-48); HEMOGLOBIN 8.4 g/dL (12.0-16.0); LYMPHOCYTES # (AUTO) 1.9 K/uL (2.5-16.5); LYMPHOCYTES % (AUTO) 26.2 % (20.5-51.1); MEAN CORPUSCULAR HEMOGLOBIN 33 pg (27-31); MEAN CORPUSCULAR HGB CONC 33 g/dL (33-37); MEAN CORPUSCULAR VOLUME 99.2 fL (80-94); MONOCYTES # (AUTO) 0.4 K/uL (0.8-1.0); MONOCYTES % (AUTO) 5.4 % (1.7-9.3); NEUTROPHILS # (AUTO) 4.8 K/uL (1.8-7.7); NEUTROPHILS % (AUTO) 64.3 % (42.2-75.2); PLATELET COUNT (AUTO) 428 K/uL (140-450); RED CELL DISTRIBUTION WIDTH 21.3 % (11.6-13.7); WHITE BLOOD COUNT (AUTO) 7.4 K/uL (4.8-10.8)
[2019-10-16] MEDS ORDERED: BUPIVACAINE-MPF/EPI 0.25% 30 ML VIAL INJ ONE (12:51)
[2019-10-16 12:52] LABS: CARBON DIOXIDE 25.2 mmol/L (21-32); CREATININE 0.4 mg/dL (0.6-1.3); POTASSIUM 3.2 mmol/L (3.5-5.1)
[2019-10-16 12:59] LABS: PROTHROMBIN TIME 10.6 secs (10.8-13.4)
--- NOTE | 2019-10-16 13:00 | NUR ---
pt opens her eyes while i checking pt. explained to pt that she is unable to breath on her own so this procedure can help her to breath. after that asked pt does she agree this procedure or not. pt nodded her head to agree this procedure. then asked pt does she have any pain or does she feel cold, pt does not have any pain but pt nodded her head to let me know she feels cold. one more blanket given to pt. checked temp 97.8F.
[2019-10-16] MEDS ORDERED: fentaNYL 0.05 MG/ML VIAL ONE (13:39)
--- NOTE | 2019-10-16 13:55 | NUR ---
PT LEFT FOR PROCEDURE, ACCOMPANIED WITH OR NURSE.
--- NOTE | 2019-10-16 15:00 | NUR ---
PT CAME BACK TO ICU, VITAL STABLE. SURGERY SITES CLEAN AND DRY. NO BLEEDING NOTED. PER , OK TO GIVE MEDS FROM G-TUBE BUT TUBE FEEDING UNTIL 10/17/19 MORNING.
[2019-10-16] MEDS ORDERED: POTASSIUM CHLORIDE 20% 40 MEQ/15 ML UDC PO SCH (15:30)
--- NOTE | 2019-10-16 16:00 | NUR ---
TURNED AND REPOSITIONED PT. ORAL CARE GIVEN. APPLIED Z-GUARD TO PT'S OLI AREA AGAIN. TOLD PT I NEEDED TO SUCTION HER A LITTLE BIT. PT NODDED HER HEAD. SUCTION WITH MODERATE AMOUNT OF SECRETION. PT TOLERATED WELL.
[2019-10-16] MEDS ORDERED: LACTULOSE 20 GM/30 ML UDC ONE (17:15)
--- NOTE | 2019-10-16 17:30 | NUR ---
PT'S BROTHER CAME IN TO VISIT PT. PT COMMUNICATED WITH HER BROTHER BY SIMPLE WORDS " YES" , " NO" OR NODDING HER HEAD, PT DENIES PAIN. PT FEELS TRACH IS BETTER THAN ETT TUBE.
--- NOTE | 2019-10-16 19:21 | NUR ---
RECEIVED PATIENT TRACH PORTEX 8 TO MECHANICAL VENTILATOR AT DOCUMENTED SETTINGS. AIRWAY SECURE AND PATENT. VENT CHECK DONE. VENT ALARMS ON AND AUDIBLE. VENT PLUGGED INTO RED OUTLET WITH WHEELS LOCKED. AMBU BAG AT BEDSIDE. PRN HHN NOT INDICATED AT THIS TIME. NO ACUTE RESPIRATORY DISTRESS NOTED AT THIS TIME. WILL CONTINUE TO MONITOR.
[2019-10-16 19:23] LABS: HEMATOCRIT 24.1 % (36-48); HEMOGLOBIN 7.9 g/dL (12.0-16.0); MEAN CORPUSCULAR VOLUME 97.1 fL (80-94); RED BLOOD CELL COUNT(AUTO) 2.48 MIL/uL (4.20-5.40)
[2019-10-16 19:24] LABS: MEAN CORPUSCULAR HEMOGLOBIN 32 pg (27-31); MEAN CORPUSCULAR HGB CONC 33 g/dL (33-37); PLATELET COUNT (AUTO) 405 K/uL (140-450); RED CELL DISTRIBUTION WIDTH 17.5 % (11.6-13.7)
--- NOTE | 2019-10-16 19:25 | NUR ---
RECEIVED REPORT FROM DAYSHIFT NURSE AT PATIENTS BEDSIDE. PATIENT HAS EYES CLOSED AND IS GRIMACING, ASKED PATIENT IF SHE HAS PAIN, SHE SAID NO AND NODDED HEAD, ASKED PATIENT IF SHE NEEDS MEDICATION FOR ANXIETY OR ANYTHING TO MAKE HER COMFORTABLE AND SHE SAYS NO. OFFERED TO PROVIDE ORAL CARE AND PATIENT SAYS YES. VAP ORAL CARE CARRIED OUT. PATIENT IS ALERT TO NAME, MAKES NEEDS KNOWN WHEN RN TALKS TO HER SLOWLY AND ALLOWS PATIENT TO MOUTH SIMPLE WORDS. PT UNDATED ON CAREPLAN AND VERBALIZES UNDERSTANDING. NEW TRACHEOSTOMY IN PLACE TO VENT, ACVC 16 SETTINGS, FI02 28%, TV 500, PEEP 5. LUNG SOUNDS ARE EQUAL AND CLEAR AT ALL LOBES. S1S2, AND ALL PULSES PALPATED. BORDERLINE TACHYCARDIC ON MONITOR, HEART RATE BETWEEN 98-105'S. ALL OTHER VITAL SIGNS STABLE. AFEBRILE. RIJ IN PLACE, TRIPLE LUMEN, INFUSING IV FLUIDS- NS @ 85ML/HR. LINE IS FLUSHED AND PATENT WITH GOOD BLOOD RETURN. ABDOMEN IS LARGE AND NONTENDER, NEW GTUBE IS IN PLACE AT LEFT UPPER QUADRANT. DRESSING/SITE IS CLEAN AND INTACT. GTUBE CLOSED OFF TO PATIENT. DAI CATHETER IN PLACE WITH CLEAR YELLOW URINE NOTED. INCONTINENT DERMATITIS NOTED, OPEN TO AIR, BARRIER CREAM APPLIED. RECTAL TUBE IN PLACE, LIQUID BROWN STOOL NOTED. HEEL PROTECTORS IN PLACE WITH PILLOWS PROPPED UP TO OFFLOAD PRESSURE AREAS. LEFT FOOT SECOND DIGIT HAS SMALL SCAB. CLOSED WOUND. HOB > 30 DEGREES, BED LOCKED AND IN LOW POSITION, SAFETY ALARMS IN PLACE, WILL CONTINUE TO MONITOR.
[2019-10-16 19:26] LABS: LYMPHOCYTES % (MANUAL) 29 % (20-46)
[2019-10-16 19:27] LABS: EOSINOPHILS % (MANUAL) 3 % (0-4); MONOCYTES % (MANUAL) 9 % (5-12)
--- NOTE | 2019-10-16 20:30 | NUR ---
TURNED AND REPOSITIONED PATIENT. OFFLOAD PRESSURE AREAS, PILLOWS IN PLACE FOR PROPER BODY ALIGNMENT. PROVIDED VAP ORAL CARE, PATIENT WITHDRAWS TO SUCTION, HAVE TO SET SUCTION TO LOW SETTING. HOB 30 DEGREES.
[2019-10-16] MEDS ORDERED: PANTOPRAZOLE 40 MG INJ VIAL ONE (21:25)
--- NOTE | 2019-10-16 23:37 | NUR ---
PT RESTING WELL IN BED EYES CLOSED, NO SIGNS AND SYMPTOMS OF SOB OR LABORED BREATHING. NO PRESENCE OF COUGH. IV FLUIDS INFUSING, AND ALL SAFETY ALARMS IN PLACE.
[2019-10-17] VITALS (24 sets, daily range): BP systolic 109–167; BP diastolic 61–96
[2019-10-17] MEDS ORDERED: LACTULOSE 20 GM/30 ML UDC ONE ×2 (00:43→09:21)
[2019-10-17] MEDS: BLOOD GLUCOSE MONITORING 1 DEV DEV FS SCH ×4 (00:53→17:28)
[2019-10-17] MEDS: Z-GUARD PASTE TP SCH ×2 (00:53→12:14)
[2019-10-17] MEDS: GAUZE TP SCH ×2 (00:54→11:52)
[2019-10-17] MEDS: LACTULOSE 20 GM/30 ML UDC PO SCH ×4 (00:54→18:09)
--- NOTE | 2019-10-17 01:40 | NUR ---
NO SIGNS AND SYMPTOMS OF DISTRESS, ASKED PATIENT IF SHE WOULD LIKE PAIN MEDICATIONS BECAUSE PATIENT IS GRIMACING. NO OTHER SIGNS OF DISTRESS, BUT PATIENT IS REFUSING MEDICATIONS. TURNED AND REPOSITIONED PATIENT.
[2019-10-17] MEDS: NACL 0.9% 1,000 ML IV SCH ×2 (02:51→17:27)
--- NOTE | 2019-10-17 03:50 | NUR ---
ORAL CARE PROVIDED, PATIENT TOLERATED WELL. PROVIDED DAI CARE, SKIN CARE, AND BATH. DAI EMPTIED AND REPLACED RECTAL BAG.
--- NOTE | 2019-10-17 06:10 | NUR ---
IV FLUIDS INFUSING AT 85ML/HR, TRACH TO VENT, SETTINGS ACVC 16, FI02 28% TV 500 PEEP 5. HOB 30 DEGREES, SIDERAILS UP, AND SEIZURE PRECAUTIONS IN PLACE. PATIENT ABLE TO MAKE NEEDS KNOWN, PATIENT DENIES PAIN.
[2019-10-17 06:48] LABS: BASOPHILS # (AUTO) 0.1 K/uL (0.00-0.22); BASOPHILS % (AUTO) 1.1 % (0.0-2.0); EOSINOPHILS # (AUTO) 0.2 K/uL (0-0.4); EOSINOPHILS % (AUTO) 3.2 % (0.0-4.0); HEMATOCRIT 26.1 % (36-48); HEMOGLOBIN 8.5 g/dL (12.0-16.0); LYMPHOCYTES # (AUTO) 1.5 K/uL (2.5-16.5); LYMPHOCYTES % (AUTO) 20.1 % (20.5-51.1); MEAN CORPUSCULAR HEMOGLOBIN 32 pg (27-31); MEAN CORPUSCULAR HGB CONC 33 g/dL (33-37); MEAN CORPUSCULAR VOLUME 99.5 fL (80-94); MONOCYTES # (AUTO) 0.4 K/uL (0.8-1.0); MONOCYTES % (AUTO) 5.8 % (1.7-9.3); NEUTROPHILS # (AUTO) 5.3 K/uL (1.8-7.7); NEUTROPHILS % (AUTO) 69.8 % (42.2-75.2); PLATELET COUNT (AUTO) 460 K/uL (140-450); RED BLOOD CELL COUNT(AUTO) 2.62 MIL/uL (4.20-5.40); RED CELL DISTRIBUTION WIDTH 21.2 % (11.6-13.7); WHITE BLOOD COUNT (AUTO) 7.6 K/uL (4.8-10.8)
--- NOTE | 2019-10-17 07:26 | NUR ---
RECEIVED ON A [employer] R860 VENTILATOR PLUGGED INTO RED OUTLET TOLERATING WELL WITHOUT ADVERSE REACTIONS NOTED TO A PORTEX DCT #8 AIRWAY SECURED WITH A PORTEX TRACH TIE CUFF PRESSURE CHECKED NOTED AMBU BAG AT BEDSIDE AWAKE AND ALERT GOOD CHEST RISE DEEP TRACHEAL SUCTION FOR MODERATE THICK YELLOW SECRETIONS AIRWAY PATENT
--- NOTE | 2019-10-17 07:28 | NUR ---
BEDSIDE REPORT RECEIVED FROM CHANGE MANAGEMENT ADMINISTRATOR NURSE, PT RETING QUIETLY WITH EYE CLOSED, OPENS EYS TO VOICE, FOLLOWS COMMANDS, TRACH TO VENT, FIO2 28%, RR 14, VT 500, PEEP 5, RESP EVEN UNLABORED, BS CLEAR BILAT, SKIN WARM DRY COLOR WNL, PT ON STRADDLE TRUCK DRIVER VITALS STABLE, SR, PICC LINE TO KRISHNA, INFUSING WELL SITE WNL, CAP REFIL <3, SKIN WARM DRY COLOR WNL, ABD SOFT NON TENDER, NEW GT IN PLACE, SITE WNL, POC REVIEWED, ALL SAFETY MEASURES IN PLACE, NO IMMEDIATE NEEDS AT THIS TIME, WILL CONTINUE TO MOTNIOR.
[2019-10-17 07:40] LABS: ALBUMIN 2.3 g/dL (3.4-5.0); ANION GAP 17.5 (8-16); CARBON DIOXIDE 20.9 mmol/L (21-32); CREATININE 0.5 mg/dL (0.6-1.3); POTASSIUM 3.4 mmol/L (3.5-5.1); TOTAL BILIRUBIN 0.7 mg/dL (0.0-1.0)
--- NOTE | 2019-10-17 08:29 | NUR ---
PT ASSISTED TO SIT IN UP RIGHT POSITION FOR BREAKFAST, PT ABLE TO FEEL HERSELF WITH MINIMAL ASSIST. SWALLOWS WITHOUT PROBLEM. Addendum: 10/17/19 at 1859 by Mary Blue RN DISREGARD THIS NOTE, WRONG PT.
[2019-10-17] MEDS ORDERED: ONDANSETRON 4 MG/2 ML VIAL IVP PRN (09:15)
[2019-10-17] MEDS ORDERED: PANTOPRAZOLE 40 MG INJ VIAL ONE (09:22)
[2019-10-17] MEDS ORDERED: ENOXAPARIN 40 MG/0.4 ML SYR SUBQ ONE (09:22)
[2019-10-17] MEDS: levETIRAcetam 750 MG in NACL 0.9% 100 ML IV SCH ×2 (09:33→20:39)
[2019-10-17] MEDS: PANTOPRAZOLE 40 MG INJ VIAL IVP SCH ×2 (09:34→20:40)
--- NOTE | 2019-10-17 09:40 | NUR ---
AM MEDS GIVEN, NO RESIDUAL IN GT, PT MAILE WELL.
[2019-10-17] MEDS: ENOXAPARIN 40 MG/0.4 ML SYR SUBQ SCH (09:47)
[2019-10-17] MEDS ORDERED: ALBUTEROL SULFATE/IPRATROPIU 3 ML SOL IH PRN (09:50)
[2019-10-17] MEDS ORDERED: MAGNESIUM OXIDE 400 MG TAB PO PRN (09:55)
[2019-10-17] MEDS ORDERED: INSULIN LISPRO SLIDING SCALE 100 UNITS/ML VIAL SUBQ PRN (09:55)
--- NOTE | 2019-10-17 10:13 | NUR ---
RESTING COMFORTABLY NO DISTRESS NOTED EQUAL CHEST RISE BREATH SOUNDS CLEAR BILATERAL WITH GOOD AERATION THROUGHOUT BILATERAL LUNG GOLDSTEIN AIRWAY PATENT WEANING ATTEMPT FAILED APNEIC 20 SECONDS
[2019-10-17] MEDS ORDERED: POTASSIUM CHLORIDE 20% 40 MEQ/15 ML UDC GT PRN (11:45)
--- NOTE | 2019-10-17 12:00 | NUR ---
GT FEED STARTED AT 10ML/HR, NO RESIDUAL AT THIS TIME.
--- NOTE | 2019-10-17 14:03 | NUR ---
RECTAL TUBE KINKED, LEAKED, PERICARE DONE, PADS CHANGED, GOWN CHANGED, DAI CARE DONE, PT APPEARS IN NO ACUTE DISTRESS, VITALS STABLE ON MONITOR, TRACH TO VENT, ALL SAFETY MEASURE IN PLACE, WILL CONTIUE TO MONITOR.
--- NOTE | 2019-10-17 14:28 | NUR ---
NO EVIDENCE OF RESPIRATORY DISTRESS NOTED GOOD CHEST RISE BREATH SOUNDS CLEAR WITH GOOD AERATION AT BILATERAL LUNG GOLDSTEIN AIRWAY PATENT
--- NOTE | 2019-10-17 15:13 | NUR ---
10/17/19 RD FOLLOW UP COMPLETED PLEASE REFER TO NUTRITION ASSESSMENT UNDER CARE ACTIVITY FOR ESTIMATED NUTRITIONAL NEEDS. 1. CONTINUE VITAL @ 55 ML/HR -THIS PROVIDES 1320 ML OF VOLUME, 1584 KCAL, AND 99 GM OF PROTEIN WHICH MEETS 100% OF ESTIMATED KCAL AND PROTEIN NEEDS 2. CONTINUE FWF [address] TO FOLLOW-UP 2-3 DAYS, HIGH RISK
--- NOTE | 2019-10-17 16:25 | NUR ---
NO APPARENT SOB NOTED EQUAL CHEST RISE AIRWAY PATENT
--- NOTE | 2019-10-17 17:37 | NUR ---
NO PULMONARY DISTRESS NOTED GOOD CHEST RISE DEEP TRACHEAL SUCTION FOR SMALL THIN PALE YELLOW SECRETIONS AIRWAY PATENT
--- NOTE | 2019-10-17 17:38 | NUR ---
BROTHER AT BEDSIDE, INFORMED THAT DOCTOR IS PLANNING TO TRANSFER TO [facility]. BROTHER AGREES.
--- NOTE | 2019-10-17 18:00 | NUR ---
PT RESTING QUIETLY IN NAD, PAD CHANGED, PERICARE DONE, NO IMMEDIATE NEEDS, PT DENIES PAIN, VITALS STABLE ON MONITOR, GT RESIDUAL <5, RATE INCREASED TO 20ML/HR.
--- NOTE | 2019-10-17 19:15 | NUR ---
BEDSIDE REPORT GIVEN TO LINER REROLL TENDER NURSE.
--- NOTE | 2019-10-17 19:25 | NUR ---
RECEIVED BEDSIDE REPORT FROM MORNING NURSE, PATIENT SPONTANEOUS EYES OPEN, RESPONSIVE TO VOICE, UNABLE TO MAKE NEEDS KNOWN AND FOLLOW COMMANDS. TRACH TO VENT WITH AC MODE, FIO2 28% VT 500, R 16, PEEP 5 NOTED. TOLERATED WELL WITH VENT SETTING. NO ACUTE DISTRESS NOTED. SR ON THE MONITOR. G TUBE TO FEEDING WITH VITAL AF 1.2 20ML/HR WITH FWF 125ML Q6. PLACEMENT CHECKED, RESIDUAL LESS THAN 5CC NOTED. F/C IN PLACE, DRAINING CLEAR YELLOW URINE NOTED. PICC LINE TO RIGHT UPPER ARM DOUBLE LUMENS RUNNING WITH NS 85ML/HR. RECTAL TUBE IN PLACE, BROWN LIQUID STOOL NOTED. INCONTINENT DERMATITIS TO PERINEAL AREA NOTED. SEIZURE PRECAUTION WITH PADS TO SIDE RAILS. CALL LIGHT WITHIN REACH, BED IN LOW POSITION, HOB ELEVATED 30 DEGREE. WILL CONTINUE TO MONITOR.
--- NOTE | 2019-10-17 21:30 | NUR ---
ADMINISTERED SCHEDULED MEDICATIONS ORDERED. NO ACUTE DISTRESS NOTED. TOLERATED WELL WITH VENT AND TUBE FEEDING. WILL CONTINUE TO MONITOR.
[2019-10-18] VITALS (17 sets, daily range): BP systolic 101–139; BP diastolic 67–99
[2019-10-18] MEDS: BLOOD GLUCOSE MONITORING 1 DEV DEV FS SCH ×3 (00:58→12:50)
[2019-10-18] MEDS: Z-GUARD PASTE TP SCH ×2 (01:00→12:50)
[2019-10-18] MEDS: LACTULOSE 20 GM/30 ML UDC PO SCH ×3 (01:00→11:42)
--- NOTE | 2019-10-18 01:00 | NUR ---
BS CHECKED 102 NOTED, NO COVERAGE NEEDED, ADMINISTERED SCHEDULED MEDICATIONS ORDERED. NO ACUTE DISTRESS NOTED. FLACC 0 NOTED.
[2019-10-18] MEDS: GAUZE TP SCH ×2 (01:08→12:50)
--- NOTE | 2019-10-18 04:30 | NUR ---
MORNING CARE RENDERED. TOLERATED WELL. NO ACUTE DISTRESS NOTED. FLACC 0. SR ON THE MONITOR.
--- NOTE | 2019-10-18 05:30 | NUR ---
ROOM CHANGED TO ICU 7 WITH RT. NO ACUTE DISTRESS NOTED. PT TOLERATED WELL WITH VENT AND TUBE FEEDING.
[2019-10-18] MEDS: NACL 0.9% 1,000 ML IV SCH (06:33)
--- NOTE | 2019-10-18 06:45 | NUR ---
BS CHECKED 107 NOTED. ADMINISTERED SCHEDULED MED ORDERED. NO ACUTE DISTRESS NOTED. G TUBE FEEDING INCREASED TO 40ML/HR. RESIDUAL 0 NOTED. WILL CONTINUE TO MONITOR.
--- NOTE | 2019-10-18 07:20 | NUR ---
BEDSIDE REPORT RECEIVED FROM HYDRAULIC ASSEMBLER NURSE, PT RESTING WITH EYES CLOSED, AROUSES TO VOICE, RESPONDS APPROPRIATELY TO QUESTIONS BY MOUTHING, DENIES PAIN, RESP EVEN UNLABORED, ON TRACH TO VENT, FIO2 28%, RR 16, VT 500, PEEP 5, BREATH SOUNDS CLEAR BILAT, NEW TRACH SITE WITH DRESSING WITH SMALL AMT OF BLOOD, VS STABLE ON MONITOR, SR, PICC LINE TO R UPPER ARM, NS INFUSING AT 85, SITE WNL, SKIN WARM DRY COLOR WNL, ABD SOFT NON DISTENDED, GT SITE WITH SMALL AMT OF BLOOD ON DRESSING, VITAL AF FEEDING AT 40ML/HR, MINIMAL RESIDUAL (< 3ML) AT THIS TIME, WILL INCREASE SLOWLY TO GOAL OF 55ML/HR, RECTAL TUBE IN PLACE, NO LEAKING NOTED, GREENISH BROWN LIQUID STOOL DRAINING TO GRAVITY, PLAN OF CARE REVIEWED, NO IMMEDIATE NEEDS AT THIS TIME, ALL SAFETY MEASURES IN PLACE, WILL CONTINUE TO MONITOR.
--- NOTE | 2019-10-18 08:40 | NUR ---
RECEIVED PT TRACH WITH PORTEX SIZE 8 AND SECURED WITH TRACH TIE. PT IS ON VENT SETTINGS ORDERED. VENT PLUGGED IN RED OUTLET; BVM AT BEDSIDE; HOB>30; CLEAR/ DIMINISHED BREATH SOUNDS; SX SMALL CLEAR WHITE SECRETIONS FROM TRACH. AIRWAY IS PATENT AND PT IS IN NO RESPIRATORY DISTRESS. PRN TX NOT GIVEN. WILL CONTINUE TO MONITOR PT.
[2019-10-18] MEDS: PANTOPRAZOLE 40 MG INJ VIAL IVP SCH (08:43)
--- NOTE | 2019-10-18 08:46 | NUR ---
LABS DRAWN FROM PICC LINE, SPECIMEN TAKEN BY [facility].
[2019-10-18] MEDS ORDERED: ENOXAPARIN 40 MG/0.4 ML SYR SUBQ SCH (09:00)
[2019-10-18 09:07] LABS: BASOPHILS % (AUTO) 0.5 % (0.0-2.0); EOSINOPHILS # (AUTO) 0.2 K/uL (0-0.4); EOSINOPHILS % (AUTO) 2.8 % (0.0-4.0); HEMATOCRIT 27.4 % (36-48); HEMOGLOBIN 8.8 g/dL (12.0-16.0); LYMPHOCYTES # (AUTO) 1.3 K/uL (2.5-16.5); LYMPHOCYTES % (AUTO) 16.3 % (20.5-51.1); MEAN CORPUSCULAR HEMOGLOBIN 32 pg (27-31); MEAN CORPUSCULAR HGB CONC 32 g/dL (33-37); MEAN CORPUSCULAR VOLUME 99.4 fL (80-94); MONOCYTES # (AUTO) 0.5 K/uL (0.8-1.0); MONOCYTES % (AUTO) 5.8 % (1.7-9.3); NEUTROPHILS # (AUTO) 6.1 K/uL (1.8-7.7); NEUTROPHILS % (AUTO) 74.6 % (42.2-75.2); PLATELET COUNT (AUTO) 429 K/uL (140-450); RED BLOOD CELL COUNT(AUTO) 2.76 MIL/uL (4.20-5.40); RED CELL DISTRIBUTION WIDTH 20.2 % (11.6-13.7); WHITE BLOOD COUNT (AUTO) 8.2 K/uL (4.8-10.8)
[2019-10-18 09:12] LABS: ANION GAP 13.7 (8-16); CARBON DIOXIDE 23.8 mmol/L (21-32); CREATININE 0.5 mg/dL (0.6-1.3); POTASSIUM 3.5 mmol/L (3.5-5.1)
--- NOTE | 2019-10-18 09:40 | NUR ---
AM CARE DONE, ORAL CARE, DAI CARE, CHG WIPES DONE, PERICARE DONE, PT REPOSITIONED, PT APPEARS COMFORTABLE, WILL CONTINUE TO JENNI
[2019-10-18] MEDS: levETIRAcetam 750 MG in NACL 0.9% 100 ML IV SCH (09:50)
--- NOTE | 2019-10-18 10:20 | NUR ---
DR HAYWOOD AT BEDSIDE, RECEIVED ORDER FOR DISCHARGE TO [facility] WHEN BED AVAILABLE.
[2019-10-18] MEDS ORDERED: LEVE250T1 GT (11:13)
[2019-10-18] MEDS ORDERED: LACT10SO11 PO (11:13)
--- NOTE | 2019-10-18 11:45 | NUR ---
REPOSITIONED, PERICARE DONE, RT AT BEDSIDE, GT RESIDUAL 0, FEEDING RATE INCREASED TO 50ML/HR.
--- NOTE | 2019-10-18 15:30 | NUR ---
REPORT CALLED TO [facility] DAM[facility], [facility] TO [facility] AT 1615 PER RHEA HANKS. SON CHERRY CALLED TO OBTAIN CONSENT FOR TRANSFER.
--- NOTE | 2019-10-18 16:05 | NUR ---
PT RESTING WITH EYES CLOSED, PERICARE DONE, GOWN AND LINEN CHANGED, PHOTO OF IAD AND TOE SCAB TAKEN, PICC LINE REMOVED, CATH TIP INTACT, BLEEDING CONTROLLED, PT MAILE WELL.
--- NOTE | 2019-10-18 16:30 | NUR ---
[facility] HERE TO [facility] AMBASSADOR PATIENT, REPORT AND MEDICAL RECORD PACKET GIVEN TO NOLAN DAMIAN, GT FLUSHED AND CLAMPED, DAI CATH REMAINS DRAINING TO GRAVITY, RECTAL TUBE IN PLACE, DRAINING WELL, PT TRANSFERED TO [facility], [facility].
== END 2019-10-18 16:30 | DRG 5 ==
LOC: MED 06:50 → MIC 09:15
PROVIDERS: ADMIT Internal Medicine Pulmonary Disease; ATTEND Internal Medicine Pulmonary Disease
PROC: 0BH17EZ Insertion of Endotracheal Airway into Trachea, Via Natural or Artificial Opening (ICD-10-PCS; principal; 2019-10-03)
PROC: 5A1955Z Respiratory Ventilation, Greater than 96 Consecutive Hours (ICD-10-PCS; 2019-10-03)
PROC: 02HV33Z Insertion of Infusion Device into Superior Vena Cava, Percutaneous Approach (ICD-10-PCS; 2019-10-05)
PROC: B548ZZA Ultrasonography of Superior Vena Cava, Guidance (ICD-10-PCS; 2019-10-05)
PROC: 0B110F4 Bypass Trachea to Cutaneous with Tracheostomy Device, Open Approach (ICD-10-PCS; 2019-10-16)
PROC: 0DH63UZ Insertion of Feeding Device into Stomach, Percutaneous Approach (ICD-10-PCS; 2019-10-16)
DX: A41.9 Sepsis, unspecified organism (principal); J69.0 Pneumonitis due to inhalation of food and vomit; J96.20 Acute and chronic respiratory failure, unspecified whether with hypoxia or hypercapnia; E11.10 Type 2 diabetes mellitus with ketoacidosis without coma; N17.9 Acute kidney failure, unspecified; E46 Unspecified protein-calorie malnutrition; R53.2 Functional quadriplegia; K72.90 Hepatic failure, unspecified without coma; F03.90 Unspecified dementia, unspecified severity, without behavioral disturbance, psychotic disturbance, mood disturbance, and anxiety; N39.0 Urinary tract infection, site not specified; Z68.32 Body mass index [BMI] 32.0-32.9, adult; F10.10 Alcohol abuse, uncomplicated; G40.909 Epilepsy, unspecified, not intractable, without status epilepticus; I10 Essential (primary) hypertension; K70.30 Alcoholic cirrhosis of liver without ascites; R13.10 Dysphagia, unspecified; Z74.01 Bed confinement status; Z79.4 Long term (current) use of insulin; Z87.891 Personal history of nicotine dependence; Z91.19 Patient's noncompliance with other medical treatment and regimen; Z88.2 Allergy status to sulfonamides; Z22.322 Carrier or suspected carrier of Methicillin resistant Staphylococcus aureus
CPT/HCPCS: 31500; 36415; 36556; 36600; 70450; 71045; 80048; 80053; 80202; 80305; 81001; 82140; 82550; 82803; 82948; 83605; 83735; 83880; 84484; 85025; 85610; 85730; 86886; 86900; 86901; 87040; 87070; 87081; 87086; 87186; 87205; 87804; 89220; 93005; 94002; 94003; 94640; 95816; 96365; 96367; 99291; A4330; C1758; C9113; G0480; G0482; J0696; J1650; J1953; J2060; J2405; J2543; J2704; J3010; J3370; J3475; J3480; J3490; J7030; J7060; Q0092